=== PATIENT | female | born 1935 | race Caucasian/White ===

== ENCOUNTER 2020-04-11 10:59 | Emergency (ER) | payer MEDICARE, SELFPAY ==
--- NOTE | ~2020-04-11 | XR_ITS ---
EXAMINATION: XR abdomen/kub 1V DATE: 04/11/2020 11:29 INDICATION: Right abdominal pain. Constipation. TECHNIQUE: A supine view of the abdomen on 3 radiographs was obtained. COMPARISON: None. FINDINGS: There are no dilated loops of bowel. There is a small volume of stool in the colon. Calcifi cations in left pelvis are likely phleboliths. Median sternotomy wires are noted. IMPRESSION: 1. Normal bowel gas pattern. Reviewed, dictated and finalized at location A. EN PRESS OPERATOR
--- NOTE | 2020-04-11 11:02 | ED.GENADULT ---
HPI - General Adult General Chief complaint: Abdominal Pain Stated complaint: SOB/abdominal pain Time Seen by Provider: 04/11/20 11:09 History of Present Illness HPI narrative: 84-year-old female presents with complaints of shortness of breath with activity and intermittent abdomen pain for months. Jacquelyn reports that she has not had a good stool in weeks and has been passing small amounts of stool for the past 2 days, last prior to arrival with a lot of pushing. No treatment. History of diverticulitis, dyspnea on exertion asthma, and cardiac surgeries (appointments with cardiac MD on 04/12/20 in which she canceled today). No significant pelvic pain. No vaginal discharge. No concerns for STDs. No fever. No nausea, vomiting, or diarrhea. No flank pain. No exacerbating factors. Denies dysuria, hematuria, and vaginal bleeding. No blood in stool. Last BM today, small amount. No new dyspnea. Has been sitting around home mostly in night gown since July, with limited activity (several car rides). Denies chest pain, back pain, headache, and dizziness. Urine output within normal limits. Tolerating po intake well, limited water intake. The patient reports she have not been diagnosed with COVID-19. The patient reports she is not waiting for the results of a COVID-19 lab test. The patient reports she do not have chills, weakness, or fatigue. The patient reports she do not have a new or worsening cough or shortness of breath. The patient reports she do not have any rhinorrhea, congestion, sore throat, or loss of taste. Denies recent traveling. Denies concerns for COVID-19 or exposures been home with limited outdoor exposure except for essential household needs and return home. At this time, patient is not suspected of having COVID-19. Some parts of this dictation were generated by voice recognition software and may contain typographical and/or grammatical inaccuracies. Related Data Home Medications Medication Instructions Recorded Confirmed aspirin 81 mg tablet,delayed 81 mg PO DAILY 06/01/19 04/11/20 release loratadine 10 mg tablet 10 mg PO DAILY 06/01/19 04/11/20 [id number] acid 0.4 1 tablet PO DAILY 06/01/19 04/11/20 mg-lycopene 300 mcg-lutein 250 mcg tablet nitroglycerin 0.4 mg sublingual 0.4 mg SUBLINGUAL Q5M PRN 06/01/19 04/11/20 tablet albuterol sulfate 90 mcg/actuation 1 puff INHALATION Q4H PRN 06/23/19 04/11/20 aerosol inhaler fluocinolone 1 dose TOPICAL DAILY 04/11/20 04/11/20 Allergies Allergy/AdvReac Type Severity Reaction Status Date / Time erythromycin base Allergy Unknown Abdominal Verified 04/11/20 11:17 pain promethazine Allergy Unknown Hallucinati Verified 04/11/20 11:26 ng epinephrine AdvReac Unknown Palpitation Verified 04/11/20 11:17 s iodine AdvReac Unknown Flushing Verified 04/11/20 11:26 Review of Systems Review of Systems: Narrative: CONSTITUTIONAL: Denies fever, chills, sweats. EYES: Denies visual changes, redness, discharge. ENT: Denies rhinorrhea, congestion, sore throat, otalgia. CARDIOVASCULAR: Denies chest pain, palpitations, edema, new irregular heart beat. RESPIRATORY: Denies new dyspnea, cough. Denies wheezing. GASTROINTESTINAL: Complains of abdominal pain, constipation. Denies vomiting, diarrhea, nausea, and decrease appetite. GENITOURINARY: Denies dysuria, hematuria, abnormal discharge. SKIN: Denies rash or itching. MUSCULOSKELETAL: Denies acute back pain, joint pain, or myalgia. NEUROLOGIC: Denies numbness or focal weakness. PSYCHIATRIC: Denies anxiety or depression. All systems reviewed & are unremarkable except as noted in HPI and below. [facility] Past Medical History Medical History (Updated 04/13/20 @ 10:20 by EMMIE Rahman) Allergy to environmental factors Anxiety Asthma Chronic low back pain without sciatica Coronary artery disease Diastolic dysfunction Dyslipidemia, goal LDL below 100 Essential (primary) hypertension
[2020-04-11 11:04] VITALS: BP 128/88; PULSE 114; RESP 16; TEMP 36.6; O2SAT 98
--- NOTE | 2020-04-11 11:39 | ECG_ITS ---
Measurements Intervals [place] Rate: 90 P: [place]: 0 QRS: -40 QRSD: 167 T: -2 QT: 419 QTc: 515 Interpretive Statements ATRIAL FIBRILLATION LEFT AXIS DEVIATION RIGHT BUNDLE BRANCH BLOCK ABNORMAL ECG Electronically Signed On 04-11-2020 14:51:27 FOREIGN STUDENT ADVISER TEACHER by Rajinder Dutton D.O.
== END 2020-04-11 12:39 | disposition home or self-care (01) ==
PROVIDERS: Emergency Provider Nurse Practitioner Family; PCP Family Medicine
DX: R10.9 Unspecified abdominal pain (principal); R06.00 Dyspnea, unspecified; I48.91 Unspecified atrial fibrillation; I45.10 Unspecified right bundle-branch block; Z87.891 Personal history of nicotine dependence; Z95.2 Presence of prosthetic heart valve; Z95.5 Presence of coronary angioplasty implant and graft; I25.10 Atherosclerotic heart disease of native coronary artery without angina pectoris; F41.9 Anxiety disorder, unspecified; M19.90 Unspecified osteoarthritis, unspecified site; Z79.82 Long term (current) use of aspirin
CPT/HCPCS: 74018; 93005; 99213; G0463

== ENCOUNTER 2020-04-28 13:57 | Observation (INO) | payer MEDICARE, SELFPAY ==
[2020-04-28] VITALS (14 sets, daily range): BP systolic 101–148; BP diastolic 56–95; PULSE 76–107; RESP 16–23; TEMP 36.1–36.6; O2SAT 97–100; BMI 34.6
--- NOTE | ~2020-04-28 | XR_ITS ---
EXAMINATION: XR chest 2V DATE: 04/28/2020 14:36 INDICATION: Generalized chest pain. Shortness of breath. TECHNIQUE: Frontal and lateral views of the chest were obtained. COMPARISON: Chest 2 views 10/22/2014 FINDINGS: There is no pneumonia, pleural effusion, or pneumothorax. Cardiomegaly is noted. There are changes of heart valve replacement. There is a chronic sclerotic lesion in proximal right humerus, li marii an enchondroma or osteonecrosis. IMPRESSION: 1. Cardiomegaly. Reviewed, dictated and finalized at location A. LSTERER INSIDE IMPRESSION: 1. Cardiomegaly.
--- NOTE | 2020-04-28 14:04 | ECG_ITS ---
Measurements Intervals [place] Rate: 86 P: [place]: 0 QRS: -53 QRSD: 163 T: 1 QT: 422 QTc: 506 Interpretive Statements ATRIAL FIBRILLATION RIGHT BUNDLE BRANCH BLOCK LEFT ANTERIOR FASCICULAR BLOCK ABNORMAL ECG Electronically Signed On 04-28-2020 14:11:26 SERVER SYSTEMS ADMINISTRATOR by Rajinder Dutton D.O.
[2020-04-28] MEDS: ASPIRIN 81 MG CHEWABLE TABLET 324 MG PO (14:21)
[2020-04-28 14:34] LABS: Basophils Absolute Auto 0.1 K/mm3 (0.0-0.1); Basophils Percent Auto 1.7 % (0.2-1.2); Eosinophils Absolute Auto 0.1 K/mm3 (0-0.3); Eosinophils Percent Auto 1.4 % (0-4.4); Hematocrit 34.5 % (37.0-47.0); Immature Granulocyte Absolute 0.02 K/mm3 (0.00-0.031); Immature Granulocyte Percent A 0.3 % (0-0.5); Lymphocytes Absolute Auto 1.03 K/mm3 (0.9-3.2); Lymphocytes Percent Auto 14.9 % (18.3-44.2); Mean Corpuscular HGB Conc 31.9 g/dl (32-36); Mean Corpuscular Hemoglobin 29.6 pg (26-34); Monocytes Absolute Auto 0.9 K/mm3 (0.1-0.6); Monocytes Percent Auto 13.6 % (2.6-8.5); Neutrophils Absolute Auto 4.7 K/mm3 (1.3-6.7); Neutrophils Percent Auto 68.1 % (45.5-73.1); Platelet Count Result 350 k/mm3 (150-375); Red Blood Count 3.71 M/mm3 (4.2-5.4); Red Cell Distribution Width 14.9 % (11.5-14.5); White Blood Count 6.9 K/mm3 (4.5-10.0)
[2020-04-28 14:47] LABS: INR 1.3; Prothrombin Time 16.7 Seconds (11.1-14.7)
[2020-04-28 14:48] LABS: Partial Thromboplastin Time 33.7 SECONDS (22.3-36.8)
[2020-04-28 14:53] LABS: Anion Gap 11 mmol/L (8-16); Blood Urea Nitrogen 11 mg/dL (7-17); Calcium 9.4 mg/dL (8.4-10.2); Carbon Dioxide 26 mmol/L (22-30); Chloride 99 mmol/L (98-107); Estimated CRCL calculation 47 ml/min; Estimated Glomerular Filt Rate > 60; Glucose 135 mg/dL (65-105); Potassium 3.9 mmol/L (3.4-5.0); Sodium 136 mmol/L (137-145)
[2020-04-28 15:05] LABS: Troponin I < 0.012 ng/mL (0.000-0.034)
--- NOTE | 2020-04-28 15:28 | ED.CHESTPAIN ---
HPI - Chest Pain General Chief Complaint: Chest Pain Stated Complaint: cp/diff breathing Time Seen by Provider: 04/28/20 14:02 History of Present Illness HPI narrative: Patient is an 84-year-old female who presents ER with chest pain. Ongoing for the last 3 weeks. Is increasing in frequency and duration. Notices it usually in the morning when she wakes up. Will be pressure across her chest already up into her neck, bilateral shoulders, and her back. She also feels this when she exerts herself to walk towards furniture or move it. Patient was recently diagnosed with atrial fibrillation and told to start on Xarelto. She reports she did not start the medication. She reports also that the pain will wake her up from sleep. She reports having similar symptoms years ago prior to having an NV. Patient has no relief with Tums/eating/drinking. Related Data Home Medications Medication Instructions Recorded Confirmed aspirin 81 mg tablet,delayed 81 mg PO DAILY 06/01/19 04/11/20 release loratadine 10 mg tablet 10 mg PO DAILY 06/01/19 04/11/20 [id number]-[id number] acid 0.4 1 tablet PO DAILY 06/01/19 04/11/20 mg-lycopene 300 mcg-lutein 250 mcg tablet nitroglycerin 0.4 mg sublingual 0.4 mg SUBLINGUAL Q5M PRN 06/01/19 04/11/20 tablet albuterol sulfate 90 mcg/actuation 1 puff INHALATION Q4H PRN 06/23/19 04/11/20 aerosol inhaler fluocinolone 1 dose TOPICAL DAILY 04/11/20 04/11/20 Allergies Allergy/AdvReac Type Severity Reaction Status Date / Time erythromycin base Allergy Unknown Abdominal Verified 04/28/20 13:15 pain promethazine Allergy Unknown Hallucinati Verified 04/28/20 13:15 ng epinephrine AdvReac Unknown Palpitation Verified 04/28/20 13:15 s iodine AdvReac Unknown Flushing Verified 04/28/20 13:15 Review of Systems Review of Systems: All systems reviewed & are unremarkable except as noted in HPI and below Constitutional: Constitutional: Denies chills, Denies fever(s) and Denies weakness ENT: Denies nasal congestion and Denies sore throat Cardiovascular: Cardiovascular: Reports chest pain, Denies rapid heart rate and Reports radiating jaw, neck or arm pain Respiratory: Respiratory: Denies cough, Reports dyspnea and Denies wheezing Gastrointestinal: Gastrointestinal: Denies abdominal pain, Denies diarrhea, Denies nausea and Denies vomiting PMF Past Medical History Medical History (Updated 04/28/20 @ 16:00 by Chi Izaguirre MD) Allergy to environmental factors Anxiety Asthma Chronic low back pain without sciatica Coronary artery disease Diastolic dysfunction Dyslipidemia, goal LDL below 100 Essential (primary) hypertension Hiatal hernia History of diverticulitis History of vertigo Mild persistent asthma without complication Moderate to severe pulmonary hypertension Osteoarthritis Rosacea Surgical History Surgical History (Updated 04/28/20 @ 13:19 by Kell Vera) S/P AVR (aortic valve replacement) (Unknown) S/P coronary artery stent placement (~2003) Family History Family History Mother Patient's mother is , Onset Age: 82 Family history of lung cancer Father Family history of cardiovascular disease, Onset Age: 67 Grandparent Asthma Social History Social History Smoking status: Former smoker Tobacco type: cigarettes Second hand tobacco smoke exposure: No Smoking end date: 05/27/80 Alcohol intake: current Drinks per week: 14 Substance use: never Substance use type: does not use Additional living arrangements comments: But daughter lives in the upstairs apartment. Gender identity (if verbalized by the patient): Female Spiritual care concerns: Yes Agree to blood products: Yes Exam Narrative: Exam Narrative: GENERAL: Well-appearing, well-nourished, and in no acute distress. HEAD: Normocephalic, atraumatic. CHES
[2020-04-28] MEDS: ENOXAPARIN 100 MG/ML SYRINGE 87 MG SUB-Q (16:37)
[2020-04-28 17:40] LABS: Troponin I < 0.012 ng/mL (0.000-0.034)
--- NOTE | 2020-04-28 18:02 | PC.NURSE ---
This patient, Jacquelyn Palacios, was admitted to IMU Room 203-01. Patient/family oriented to hospital policies and general routines including ID bracelet, bed and alarms, visiting hours, pain management, procedures, bathroom and other care routines, personal items, smoking policy, room service/diet, and visiting hours. Information on how to activate the Rapid Response Team has been discussed. Patient/Family are encouraged to report perceived risks to care and to ask questions if they do not understand what they are told or what they should do.
[2020-04-28 20:11] LABS: Troponin I < 0.012 ng/mL (0.000-0.034)
--- NOTE | 2020-04-28 21:04 | PM.IMHP ---
H&P: HPI History of Present Illness Date/Time: 04/28/20 21:04 Chief complaint: chest pain, unstable angina, afib Narrative: This is a pleasant 84 year old obese prediabetic female with known CAD+ s/p NV s/p #1 stent, s/p aortic valve replacement w/ bovine valve, paroxysmal atrial fibrillation, and COPD who presented to the hospital from her PCPs office secondary to ongoing intermittent chest discomfort that has been ongoing for the past few months and seemed to worsen today. She describes her discomfort as exertional in nature and lasting less than 2 minutes whenever she gets it. Her discomfort resolves with rest. This morning her chest discomfort seemed to start in her epigastric region after getting up and radiated up across her chest and towards her neck and down her arms. She was worried because her symptoms reminded her of when she had a previous heart attack. She is known to have a hiatal hernia and denies any previous EGD. She can't remember the last time she had a stress test. She denies any associated symptoms of fever, worsening cough or shortness of breath, palpitations, nausea, vomiting, dysuria, hematuria, diarrhea, black stools, LE pain or swelling. She was supposed to start Xarelto but hasn't done it yet. She previously smoked 2 ppd x 20 years and quit in her 40s. She was anticoagulated today with Lovenox. Cardiology was consulted by ER provider and we were asked to admit the patient so they can evaluate her in the morning. On my encounter with the patient tonight she is asymptomatic. Review of Systems Review of Systems: All systems reviewed & are unremarkable except as noted in HPI and below PMFSH Past Medical History Medical History Allergy to environmental factors Anxiety Asthma Chronic low back pain without sciatica Coronary artery disease Diastolic dysfunction Dyslipidemia, goal LDL below 100 Essential (primary) hypertension Hiatal hernia History of diverticulitis History of vertigo Mild persistent asthma without complication Moderate to severe pulmonary hypertension Osteoarthritis Rosacea Surgical History Surgical History S/P AVR (aortic valve replacement) (Unknown) S/P coronary artery stent placement (~2003) Family History Family History Mother Patient's mother is , Onset Age: 82 Family history of lung cancer Father Family history of cardiovascular disease, Onset Age: 67 Grandparent Asthma Social History Social History Smoking packs per day: 2 Smoking cigarettes per day: 40.0 Smoking status: Former smoker Tobacco type: cigarettes Second hand tobacco smoke exposure: No Smoking end date: 05/27/80 Alcohol intake: current Drinks per week: 7 Substance use: never Substance use type: does not use Additional living arrangements comments: But daughter lives in the upstairs apartment. Gender identity (if verbalized by the patient): Female Spiritual care concerns: No Agree to blood products: Yes Meds Home Medications and Allergies Home Medications Medication Instructions Recorded Confirmed Type aspirin 81 mg tablet,delayed 81 mg PO DAILY 06/01/19 04/28/20 History release loratadine 10 mg tablet 10 mg PO DAILY 06/01/19 04/28/20 History nitroglycerin 0.4 mg sublingual 0.4 mg SUBLINGUAL Q5M PRN 06/01/19 04/28/20 History tablet albuterol sulfate 90 mcg/actuation 1 puff INHALATION Q4H PRN 06/23/19 04/28/20 History aerosol inhaler fluticasone 100 mcg-salmeterol 50 1 puff INHALATION BID #180 each 06/23/19 04/28/20 Rx mcg/dose blistr powdr for inhalation fenofibrate nanocrystallized 145 145 mg PO DAILY #90 tablet 07/30/19 04/28/20 Rx mg tablet metoprolol succinate 50 mg 50 mg PO DAILY #90 tablet 02/16/20 12
[2020-04-28] MEDS: ATORVASTATIN 40 MG TABLET PO (22:08)
[2020-04-29] VITALS (11 sets, daily range): BP systolic 122–124; BP diastolic 68–88; PULSE 68–112; RESP 16–20; TEMP 36.1–37.1; O2SAT 97–99
--- NOTE | 2020-04-29 | ECHO_ITS ---
Patient Info Name: Jacquelyn Palacios Age: 84 years : 1935 Gender: Female Ht: 62 in Wt: 186 lbs BSA: 1.96 m2 HR: 82 bpm BP: 123 / 88 mmHg Heart Rhythm: Atrial Fibrillation Technical Quality: Good Exam Date: 04/29/2020 10:04 AM Exam Location: [facility] Pulmonary Patient Status: Inpatient Admit Date: 04/28/2020 Staff Ordering Physician: Alfred Madrid MD Order Clerk: Josué Chavez, VANESSA, RT Attending Provider: Cindy Colon MD Referring Physician: Julius THAPA; Exam Type: CA echo doppler color flow Study Info Indications Z95.2 - Presence of prosthetic heart valve Complete two-dimensional, color flow and Doppler transthoracic echocardiogram is performed. Strain analysis performed. Summary 1. Complete two-dimensional, color flow and Doppler transthoracic echocardiogram is performed. 2. Left ventricular chamber dimension is normal. 3. Left ventricular systolic function is hyperdynamic, estimated at >70%. 4. 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 5. The mitral valve annulus is severely calcified. 6. There is mild to moderate mitral valve regurgitation. 7. There is severe tricuspid valve regurgitation. Left Ventricle Left ventricular chamber dimension is normal. Left ventricular systolic function is hyperdynamic, estimated at >70%. The left ventricular diastolic function is indeterminate. Right Ventricle Right ventricular chamber dimension is normal. Left Atria Left atrial chamber dimension is severely enlarged. Right Atria Right atrial chamber dimension is severely enlarged. 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 There is trace regurgitation of the bioprosthetic aortic valve. Pulmonic Valve The pulmonic valve is not well visualized. Mitral Valve The mitral valve has thickened leaflets. There is mild to moderate mitral valve regurgitation. The mitral valve annulus is severely calcified. Tricuspid Valve The tricuspid valve leaflets are normal. There is severe tricuspid valve regurgitation. Pericardium/Pleural The pericardium appears normal. Aorta The aortic root size at the sinus of Valsalva is normal. Left Ventricular Outflow Tract Name Value Normal LVOT 2D LVOT Diameter 1.9 cm LVOT Doppler LVOT Peak Gradient 5 mmHg LVOT Mean Gradient 2 mmHg LVOT VTI 19 cm LVOT VTI/AV VTI Ratio 0.3 LVOT Stroke Volume 57 ml LVOT CO 4.7 l/min LVOT CI 2.4 l/min/m2 Mitral Valve Name Value Normal MV Doppler
[2020-04-29 00:13] LABS: Alanine Aminotransferase 87 U/L (4-35); Alkaline Phosphatase 46 U/L (38-126); Aspartate Amino Transferase 107 U/L (14-36); Lipase 229 U/L (23-300)
[2020-04-29 00:24] LABS: Troponin I 0.014 ng/mL (0.000-0.034)
[2020-04-29 04:56] LABS: Basophils Absolute Auto 0.1 K/mm3 (0.0-0.1); Basophils Percent Auto 1.7 % (0.2-1.2); Eosinophils Absolute Auto 0.2 K/mm3 (0-0.3); Eosinophils Percent Auto 2.9 % (0-4.4); Hematocrit 32.6 % (37.0-47.0); Hemoglobin 10.3 g/dL (12.0-15.0); Immature Granulocyte Absolute 0.02 K/mm3 (0.00-0.031); Immature Granulocyte Percent A 0.3 % (0-0.5); Lymphocytes Absolute Auto 1.24 K/mm3 (0.9-3.2); Lymphocytes Percent Auto 21.4 % (18.3-44.2); Mean Corpuscular HGB Conc 31.6 g/dl (32-36); Mean Corpuscular Hemoglobin 29.2 pg (26-34); Mean Corpuscular Volume 92.4 fl (80-100); Mean Platelet Volume 11.2 fl (7.4-10.4); Monocytes Absolute Auto 0.8 K/mm3 (0.1-0.6); Monocytes Percent Auto 14.3 % (2.6-8.5); Neutrophils Absolute Auto 3.4 K/mm3 (1.3-6.7); Neutrophils Percent Auto 59.4 % (45.5-73.1); Platelet Count Result 320 k/mm3 (150-375); Red Blood Count 3.53 M/mm3 (4.2-5.4); Red Cell Distribution Width 14.6 % (11.5-14.5); White Blood Count 5.8 K/mm3 (4.5-10.0)
[2020-04-29 05:09] LABS: Anion Gap 8 mmol/L (8-16); Blood Urea Nitrogen 10 mg/dL (7-17); Calcium 8.7 mg/dL (8.4-10.2); Carbon Dioxide 28 mmol/L (22-30); Chloride 100 mmol/L (98-107); Cholesterol 82 mg/dL (0-200); Estimated CRCL calculation 53 ml/min; Estimated Glomerular Filt Rate > 60; Glucose 109 mg/dL (65-105); HDL Direct 13 mg/dL; Potassium 3.7 mmol/L (3.4-5.0); Sodium 136 mmol/L (137-145); Triglycerides 119 mg/dL (<150)
[2020-04-29 05:20] LABS: LDL Cholesterol Direct 55 mg/dL
[2020-04-29] MEDS: METOPROLOL SUCCINATE EXT REL 50 MG TABCR PO (08:35)
[2020-04-29] MEDS: MULTIVITAMINS /C LUTEIN (CENTRUM SILVER) TABLET *BKC 1 TAB PO (08:35)
[2020-04-29] MEDS: FENOFIBRATE NANOCRYSTALLIZED 145 MG TABLET PO (08:36)
[2020-04-29] MEDS: LORATADINE 10 MG TABLET PO (08:36)
[2020-04-29] MEDS: MONTELUKAST SODIUM 10 MG TABLET PO (08:36)
[2020-04-29] MEDS: ASPIRIN 81 MG ENTERIC TABLET PO (08:36)
--- NOTE | 2020-04-29 09:12 | PM.CNCAR ---
Assessment and Plan Additional Plan 84-year-old female with: Coronary and valvular heart disease. The patient is having more symptoms of dyspnea probably as I stated in the office due to the fact that she is now in atrial fibrillation and I suspect has significant mitral valve regurgitation. She does have intermittent episodes of chest pain. This of course raises concern regarding her coronary artery disease but she does have a series of negative troponins at least 4 5 samples. I do not see any clinical or electrocardiographic evidence of acute coronary syndrome. I would like to order the echocardiogram that I was going to have done in the office to be done this morning. I will review those results and come back and see the patient for further discussion. Alfred Madrid MD [facility] History of Present Illness History of Present Illness Consult date/time: 04/29/20 09:12 Consult reason: chest pain and shortness of breath Reason For Visit: chest pain, unstable angina, afib Narrative: This is a pleasant 84-year-old lady who I see in the office with a history of coronary disease, valvular heart disease and atrial fibrillation. She was hospitalized yesterday after being seen in the emergency room and she was sent there from her PCP office earlier in the day. The patient was reporting intermittent episodes of chest discomfort of recent onset and was seen in the emergency room after she was seen by her PCP. She was then admitted for further evaluation and management. Mrs. Palacios is a patient who initially presented with symptoms of myocardial ischemia while she was out of town in [place] and underwent urgent right coronary artery stenting I believe back in 2003. She presented to me initially in 2012 with symptoms of shortness of breath and was found to have significant aortic valve stenosis. Her right coronary artery also at that time I believe was stenotic again and she was referred for surgery she received a bioprosthetic aortic valve and I believe a single-vessel bypass to the RCA. She had done very well since then and has been seen in my office regularly. As it happens she went to a urgent care facility for some abdominal pain and at that time was found to be in atrial fib by physical exam and ECG. She was then asked to see me in referral which I saw 2 weeks ago. I told the patient and her family that I was suspicious that her mitral valve regurgitation had triggered the onset of her atrial fibrillation and for that reason she was more symptomatic with dyspnea. Anticoagulation with Xarelto was ordered and recommended an echocardiogram. She was fearful of the anticoagulant and never did get the prescription filled. She also was fearful of coming into the office during the pandemic and did not get the echocardiogram performed. Review of Systems Constitutional: Constitutional: Reports no additional constitutional complaints Eyes: Eyes: Reports no additional eye complaints ENT: Reports system reviewed and no additional complaints, except as documented Cardiovascular: Cardiovascular: Reports as per HPI Respiratory: Respiratory: Reports as per HPI Gastrointestinal: Gastrointestinal: Reports no additional gastrointestinal complaints Musculoskeletal: Musculoskeletal: Reports no additional musculoskeletal complaints Integumentary/Breasts: Skin/Breast: Reports system reviewed and no additional complaints, except as docu Neurologic: Reports system reviewed and no additional complaints, except as documented Endocrine: Endocrine: Reports no additional endocrine complaints Hematologic/Lymphatic: Hematologic/Lymphatic: Reports no additional hematologic/lymphatic complaints Allergic/Immunologic: Allergic/Immunologic: Reports no additional allergic/immunologic complaints [facility] Past Medical History Medical History Allergy to environmental factors Anxiety Asthma Chronic low back pain without
--- NOTE | 2020-04-29 13:04 | PM.PNCARD ---
Progress Note: A&P Additional Plan 84-year-old lady with coronary heart disease, valvular heart disease and recent development of atrial fibrillation. My current recommendations are to systemically anticoagulate her with Xarelto which was recommended 2 weeks ago in the office. She now is agreeable to take the medication. I would like to start her on a modest dose of furosemide such as 20 mg per day and arrange to see her in the office in about 4 weeks after discharge to discuss and schedule attempt at restoring sinus rhythm electrically. That gives the patient some time to consider her opinion about redo valve heart surgery. In my opinion she can be discharged to home this afternoon Alfred Madrid MD [facility] Subjective Date/time seen: Date of service: 04/29/20 13:04 Interval history: Follow-up visit in this 84-year-old female with: Shortness of breath, valvular heart disease coronary heart disease and atrial fibrillation. Echocardiogram done this morning demonstrates very good left ventricular systolic function. I am concerned that her bioprosthetic aortic valve appears to be significantly stenotic with a calculated valve area of approximately 0.8 cm2. The mitral valve regurgitation on echo looks mild. She does have severe tricuspid valve regurgitation. Had a long discussion with the patient about these findings and about considering redo valve surgery and/or coronary read revascularization. The patient is not sure at her advanced age that she wishes to undergo any further cardiac surgical procedures. Certainly it is still my impression that she is recently mowed more short of breath because she has developed atrial fibrillation. It is possible we would be able to restore sinus rhythm and help her feel symptomatically improved after a suitable period of anticoagulation. Exam Const: General: comfortable and no acute distress HENMT: Mouth: Yes moist mucous membranes Eyes: Sclera: sclerae normal Pupils: Equal, round and reactive pupils present Neck: Neck: supple Thyroid: thyroid normal Resp: Effort & Inspection: normal respiratory effort Auscultation: clear to auscultation bilaterally Cardio: Rhythm: abnormal rhythm irregularly irregular Other: Grade 2/6 crescendo decrescendo murmur at the base and a grade 3/6 holosystolic apical murmur are audible. GI: GI Palp: Yes Soft to palpation Auscultation: normal bowel sounds Neuro: Cognition (Neuro): normal cognition Extrem: General: normal to inspection Objective Data Vital Signs Vital Signs: Vital Signs - 24 hr 04/28/20 14:09 04/28/20 14:10 04/28/20 14:15 Temperature 36.6 C Pulse Rate 87 88 85 Respiratory Rate 22 H 19 19 Blood Pressure 139/90 Pulse Oximetry 100 99 98 04/28/20 14:17 04/28/20 14:51 04/28/20 15:00 Temperature Pulse Rate 79 77 76 Respiratory Rate 20 23 H 20 Blood Pressure 101/56 L Pulse Oximetry 98 97 99 04/28/20 15:15 04/28/20 16:38 04/28/20 17:51 Temperature Pulse Rate 83 85 Respiratory Rate 23 H 20 22 H Blood Pressure 137/95 H Pulse Oximetry 98 100 100 04/28/20 18:14 04/28/20 18:59 04/28/20 20:00 Temperature 36.6 C 36.1 C L Pulse Rate 76 88 82 Respiratory Rate 16 18 Blood Pressure 148/84 H 106/75 Pulse Oximetry 100 99 04/28/20 22:00 04/28/20 23:52 04/29/20 00:00 Temperature 36.1 C L Pulse Rate 95 107 H 96 Respiratory Rate 18 18 Blood Pressure 123/67 Pulse Oximetry 98 98 04/29/20 02:00 04/29/20 03:58 04/29/20 04:00 Temperature 36.3 C L Pulse Rate 98 95 95 Respiratory Rate 16 18 Blood Pressure 122/69 Pulse Oximetry 99 97 04/29/20 06:00 04/29/20 08:00 04/29/20 08:35 Temperature 36.1 C L Pulse Rate 96 112 H 98 Respiratory Rate 18 Blood Pressure 123/88 Pulse Oximetry 98 04/29/20 11:53 Temperature 37.1 C Pulse Rate 68 Respiratory Rate 20 Blood Pressure 124/68 Pulse Oximetry 97 Intake/Output Intake/Output: Intake & Output 04/26/20 04/27/20 04/28/20
[2020-04-29] MEDS: BENZONATATE 100 MG CAPSULE 200 MG PO (13:53)
[2020-04-29] MEDS: RIVAROXABAN 20 MG TABLET PO (14:43)
--- NOTE | 2020-04-29 18:01 | PM.DS ---
DS: Admitting Diagnosis Admitting Diagnosis Admitting Diagnosis: chest pain, unstable angina, afib DS: Discharge Diagnosis Discharge Diagnosis (1) Chest pain: Qualifiers: Chest pain type: unspecified Qualified Code(s): R07.9 - Chest pain, unspecified Code(s): R07.9 - Chest pain, unspecified Status: Acute Assessment and Plan: Patient had no further chest pain and troponins serially were negative. She has been anticoagulated by ER provider. Continue ASA therapy. Cardiology Cardiology so and repeat echo revealed area of prosthetic aortic valve a 1 cm with 25 mm gradient. This could have been causing the chest discomfort sensor is no significant coronary disease when she had original valve repaired in the past that catheterization.. Cardiology felt atrial fibrillation was precipitating the shortness of breath with exertion. She is encouraged to take her Xarelto and follow-up with cardiology in 4 weeks at which point possible cardioversion (2) Atrial fibrillation: Qualifiers: Atrial fibrillation type: paroxysmal Qualified Code(s): I48.0 - Paroxysmal atrial fibrillation Code(s): I48.91 - Unspecified atrial fibrillation Status: Chronic Assessment and Plan: Currently rate controlled. Continue beta tay and Resume Xarelto at discharge. As above cardiology felt this was contributing to her shortness of breath with exertion and plan for possible cardioversion in 4 weeks (3) Normocytic anemia: Code(s): D64.9 - Anemia, unspecified Status: Acute Assessment and Plan: Acute vs. Chronic. No signs of acute blood loss. Will need to follow-up with primary care (4) COPD (chronic obstructive pulmonary disease): Qualifiers: COPD type: unspecified COPD Qualified Code(s): J44.9 - Chronic obstructive pulmonary disease, unspecified Code(s): J44.9 - Chronic obstructive pulmonary disease, unspecified Status: Acute Assessment and Plan: Continue bronchodilators, and montelukast. (5) Essential (primary) hypertension: Code(s): I10 - Essential (primary) hypertension Status: Chronic Assessment and Plan: stable. Monitor blood pressure. Continue metoprolol. (6) Dyslipidemia, goal LDL below 100: Code(s): E78.5 - Hyperlipidemia, unspecified Status: Chronic Assessment and Plan: . Continue atorvastatin. Slide LFT elevation could be from statin will continue to follow with primary care (7) Coronary artery disease: Qualifiers: Coronary Disease-Associated Artery/Lesion type: [place] artery [place] vs. transplanted heart: [place] heart Associated angina: without angina Qualified Code(s): I25.10 - Atherosclerotic heart disease of [place] coronary artery without angina pectoris Code(s): I25.10 - Atherosclerotic heart disease of [place] coronary artery without angina pectoris Status: Chronic Assessment and Plan: As above troponins were negative and Cardiology felt could be related to the restenotic aortic valve. Patient will follow-up in 4 weeks DS: Summary Hospital Course Hospital Course: 84-year-old hypertensive female with recent onset atrial fibrillation with controlled ventricular response presented to the emergency room with increasing shortness of breath and chest discomfort on exertion. EKG unchanged with AFib controlled ventricular response and right bundle branch block. Troponins were negative. Echocardiogram showed giio-pm-dszonsky mitral insufficiency with normal ejection fraction and stenosis of the prosthetic aortic valve with an area of 1 cm2 and 25 mm gradient. Cardiology felt AFib was cause no shortness of breath than the restenotic valve could be causing the shortness of breath and chest discomfort. Patient will follow-up in 4 weeks after full anticoagulation and make decision about cardioversion at that time. Will need follow-up on a electrolytes, CBC, and LFTs. Dis
== END 2020-04-29 15:20 | disposition home or self-care (01) ==
LOC: ANHED 16:56 → ANHIMU 04-29 13:30
PROVIDERS: Family Medicine; Admitting Provider Family Medicine; Emergency Provider Emergency Medicine; PCP Family Medicine; Visit Provider Internal Medicine
DX: R07.9 Chest pain, unspecified (principal); I48.0 Paroxysmal atrial fibrillation; D64.9 Anemia, unspecified; J44.9 Chronic obstructive pulmonary disease, unspecified; I10 Essential (primary) hypertension; E78.5 Hyperlipidemia, unspecified; I25.10 Atherosclerotic heart disease of native coronary artery without angina pectoris; I25.2 Old myocardial infarction; F41.9 Anxiety disorder, unspecified; R73.03 Prediabetes; I08.3 Combined rheumatic disorders of mitral, aortic and tricuspid valves; M54.5 Low back pain; K44.9 Diaphragmatic hernia without obstruction or gangrene; I27.20 Pulmonary hypertension, unspecified; R94.31 Abnormal electrocardiogram [ECG] [EKG]; E66.9 Obesity, unspecified; Z68.34 Body mass index [BMI] 34.0-34.9, adult; Z87.891 Personal history of nicotine dependence; Z95.5 Presence of coronary angioplasty implant and graft; Z79.82 Long term (current) use of aspirin; Z79.899 Other long term (current) drug therapy; Z95.4 Presence of other heart-valve replacement
CPT/HCPCS: 36415; 71046; 80048; 80061; 83690; 84075; 84450; 84460; 84484; 85025; 85610; 85730; 93005; 93306; 96372; 99285; A9270; G0378; J1650

== ENCOUNTER 2020-05-09 15:02 | Outpatient (CLI) | payer MEDICARE, SELFPAY ==
[2020-05-09 15:52] LABS: Anion Gap 6 mmol/L (8-16); Blood Urea Nitrogen 9 mg/dL (7-17); Carbon Dioxide 30 mmol/L (22-30); Chloride 100 mmol/L (98-107); Estimated Glomerular Filt Rate > 60; Glucose 124 mg/dL (65-105); Potassium 3.6 mmol/L (3.4-5.0); Sodium 136 mmol/L (137-145)
== END 2020-05-09 15:03 | disposition home or self-care (01) ==
PROVIDERS: PCP Family Medicine; Visit Provider Internal Medicine
DX: I10 Essential (primary) hypertension (principal); I51.89 Other ill-defined heart diseases
CPT/HCPCS: 36415; 80048

== ENCOUNTER 2020-05-21 01:10 | Outpatient (CLI) | payer MEDICARE, SELFPAY ==
[2020-05-21 19:31] LABS: SARS-CoV-2 RNA PCR Negative
== END 2020-05-21 01:11 | disposition home or self-care (01) ==
LOC: ANHCOVIDDT 01:10
PROVIDERS: PCP Family Medicine; Visit Provider Specialist
DX: Z01.818 Encounter for other preprocedural examination (principal); Z20.828 Contact with and (suspected) exposure to other viral communicable diseases
CPT/HCPCS: 87635; C9803; U0003

== ENCOUNTER 2020-05-25 00:45 | Day surgery (SDC) | payer MEDICARE, SELFPAY ==
[2020-05-24 14:24] VITALS: BMI 34.7
[2020-05-25] VITALS (35 sets, daily range): BP systolic 93–152; BP diastolic 58–98; PULSE 74–101; RESP 13–22; TEMP 36.6–36.9; O2SAT 93–100; BMI 35.5
[2020-05-25 08:43] LABS: Basophils Percent Auto 0.2 % (0.2-1.2); Hematocrit 31.7 % (37.0-47.0); Hemoglobin 10.2 g/dL (12.0-15.0); Immature Granulocyte Absolute 0.01 K/mm3 (0.00-0.031); Immature Granulocyte Percent A 0.2 % (0-0.5); Lymphocytes Absolute Auto 0.44 K/mm3 (0.9-3.2); Lymphocytes Percent Auto 9.2 % (18.3-44.2); Mean Corpuscular HGB Conc 32.2 g/dl (32-36); Mean Corpuscular Hemoglobin 27.3 pg (26-34); Mean Corpuscular Volume 84.8 fl (80-100); Mean Platelet Volume 10.6 fl (7.4-10.4); Monocytes Absolute Auto 0.1 K/mm3 (0.1-0.6); Neutrophils Absolute Auto 4.3 K/mm3 (1.3-6.7); Neutrophils Percent Auto 89.4 % (45.5-73.1); Platelet Count Result 368 k/mm3 (150-375); Red Blood Count 3.74 M/mm3 (4.2-5.4); Red Cell Distribution Width 16.9 % (11.5-14.5); White Blood Count 4.8 K/mm3 (4.5-10.0)
[2020-05-25 08:52] LABS: INR 1.2
[2020-05-25 08:56] LABS: Anion Gap 9 mmol/L (8-16); Blood Urea Nitrogen 11 mg/dL (7-17); Calcium 9.3 mg/dL (8.4-10.2); Carbon Dioxide 26 mmol/L (22-30); Chloride 101 mmol/L (98-107); Estimated CRCL calculation 53 ml/min; Estimated Glomerular Filt Rate > 60; Glucose 172 mg/dL (65-105); Potassium 3.9 mmol/L (3.4-5.0); Sodium 136 mmol/L (137-145)
--- NOTE | 2020-05-25 09:06 | SUR.PREOP ---
Patient arrives to [facility] 4 in wheelchair with staff assistance provided to get dressed into hospital gown and to ambulate to bed. PIV initiated and labs obtained. VSS. Patient denies pain upon arrival. Patient took 50 mg benadryl and 50 mg prednisone at 0855 to premedicate for iodine allergy. Patient updated on plan of care and verbalizes understanding. Will continue to closely monitor patient.
--- NOTE | 2020-05-25 09:31 | WPDMODSED ---
Moderate Sedation Note-Pt Data Patient Data Diagnosis: nitrate responsive chest pain coronary disease with previous RCA PCI status post bioprosthetic aortic valve replacement for aortic stenosis persistent atrial fibrillation Present Complaint: this is an 85-year-old woman who underwent bioprosthetic AVR to treat critical aortic stenosis. She did very well initially and now has had problems with nitrate responsive chest pain creating concern regarding her coronaries. She has in the remote past in 204 undergone stenting of the RCA. She also has a history of atrial fibrillation of relatively recent onset and unfortunately had significant hemorrhaging in response to systemic anticoagulation. For further evaluation of her chest pain coronary angiography is scheduled for today Procedure to be performed/Plan: coronary angiography possible PCI Allergies Allergy/AdvReac Type Severity Reaction Status Date / Time erythromycin base Allergy Unknown Abdominal Verified 05/24/20 14:30 pain promethazine Allergy Unknown Hallucinati Verified 05/24/20 14:30 ng epinephrine AdvReac Unknown Palpitation Verified 05/24/20 14:30 s iodine AdvReac Unknown Flushing Verified 05/24/20 14:30 Home Medications Medication Instructions Recorded Confirmed Type aspirin 81 mg tablet,delayed 81 mg PO DAILY 06/01/19 05/24/20 History release loratadine 10 mg tablet 10 mg PO DAILY 06/01/19 05/24/20 History nitroglycerin 0.4 mg sublingual 0.4 mg SUBLINGUAL Q5M PRN 06/01/19 05/24/20 History tablet albuterol sulfate 90 mcg/actuation 1 puff INHALATION Q4H PRN 06/23/19 05/24/20 History aerosol inhaler fenofibrate nanocrystallized 145 145 mg PO DAILY #90 tablet 07/30/19 05/24/20 Rx mg tablet metoprolol succinate 50 mg 50 mg PO DAILY #90 tablet 02/16/20 05/24/20 Rx tablet,extended release 24 hr lorazepam 0.5 mg tablet 0.5 mg PO BID PRN #60 tablet 04/08/20 05/24/20 Rx atorvastatin 40 mg PO DAILY 04/28/20 05/24/20 History montelukast 10 mg PO DAILY 04/28/20 05/24/20 History sttemcne-ndrhkjs-hkzu-lutein 1 tablet PO DAILY 04/28/20 05/24/20 History furosemide 20 mg PO DAILY #30 tablet 04/29/20 05/24/20 Rx codeine 10 mg-guaifenesin 100 mg/5 5 ml PO BID PRN #118 ml 05/09/20 05/24/20 Rx mL oral liquid Current Medications: Active Medications Sodium Chloride (Normal Saline Iv) 500 mls @ 100 mls/hr IV CONT .Q5H [facility] Sedation/Anesthesia: No previous sedation/anesthesia problems (including family history). [facility] Past Medical History Medical History Allergy to environmental factors Anxiety Asthma Chronic low back pain without sciatica Coronary artery disease Diastolic dysfunction Dyslipidemia, goal LDL below 100 Essential (primary) hypertension Hiatal hernia History of diverticulitis History of vertigo Mild persistent asthma without complication Moderate to severe pulmonary hypertension Osteoarthritis Rosacea Surgical History Surgical History S/P AVR (aortic valve replacement) (Unknown) S/P coronary artery stent placement (~2003) Family History Family History Mother Patient's mother is , Onset Age: 82 Family history of lung cancer Father Family history of cardiovascular disease, Onset Age: 67 Grandparent Asthma Social History Social History Smoking packs per day: 2 Smoking cigarettes per day: 40.0 Smoking status: Former smoker Tobacco type: cigarettes Second hand tobacco smoke exposure: No Smoking end date: 05/27/79 Alcohol intake: current Drinks per week: 7 Alcohol use details: 1 glass of wine per day Substance use: never Substance use type: does not use Living arrangements: with family Additional living arrangements comments: But daughter lives in the upst
--- NOTE | 2020-05-25 11:04 | ECG_ITS ---
Measurements Intervals [place] Rate: 79 P: [place]: 0 QRS: -59 QRSD: 161 T: -5 QT: 456 QTc: 525 Interpretive Statements ATRIAL FIBRILLATION RIGHT BUNDLE BRANCH BLOCK LEFT ANTERIOR FASCICULAR BLOCK ABNORMAL ECG Electronically Signed On 05-25-2020 14:26:17 HAND ASSEMBLER FOR [employer] by Rajinder Dutton D.O.
--- NOTE | 2020-05-25 11:11 | WPDCARDPROC ---
Cardiac Cath Procedure Note Date of procedure:: 05/25/20 Performing physician:: Alfred Madrid MD Indication:: nitrate responsive chest pain, history of previous RCA stenting previous aortic valve replacement persistent atrial fibrillation Brief clinical history:: this is an 85-year-old woman who has a history of stenting of her RCA in the remote past. About 6 years ago she underwent bioprosthetic aortic valve replacement for critical aortic stenosis. Recently the patient developed persistent atrial fibrillation and also nitrate responsive chest pain. Despite medical therapy she continues to have symptoms and in this setting a follow-up coronary angiogram has been recommended. Procedure Procedure performed:: Left and right coronary angiography PCI (RAE) to the right coronary artery Sedation/Medication given:: fentanyl 75 mg Versed 2 mg case start time 954 a.m. case end time 11:00 a.m. sedation provided by Marco Marinelli RN, trained observer Access site:: right femoral artery Estimated blood loss:: 20-30 cc Procedure note:: patient was brought to the cardiac catheterization lab in the postabsorptive state where the right femoral triangle was prepared in the usual fashion. Anesthesia was provided with 1% lidocaine infiltrated locally. Using the modified Seldinger technique a 5 [place] sheath was placed into the right femoral artery after this I injected the left coronary artery using a standard 5 [place] FL4 diagnostic catheter and the right coronary artery using a 5 [place] no torque catheter. The cine angiograms were then reviewed and PCI of the right coronary artery was recommended carried out as detailed below. Prior to PCI the 5 [place] sheath was changed out over a guidewire for a 6 [place]. The patient was then systemically anticoagulated with Angiomax bolus and infusion and received clopidogrel 600 mg p.o.. She also received 325 mg of aspirin. 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 Findings:: Hemodynamics: Central aortic pressure was 134/84. The left ventricle was not entered during this procedure left main coronary artery is relatively short but free of significant disease. The left anterior descending is a moderate caliber artery extending down to and around the apex. There is mild plaquing in the proximal LAD but no more than 30-40% stenosis seen in any projection circumflex is a medium caliber artery giving rise to the marginal branches the circumflex has mild luminal irregularities but no flow-limiting lesions. The right coronary artery is moderate caliber and dominant to the posterior circulation there is stent material visible in the midportion of the RCA. In the proximal area in the stented segment there is a high-grade stenosis of 95-99% which appears to be heavily calcified. In the distal aspect of the stent there was a more discrete 80-90% stenosis. Intervention: The right coronary artery was engaged using a 6 [place] WRP guiding catheter. A 0.014 BMW guidewire was advanced into the artery with some challenge across the calcified plaque down into the distal RCA and out into the RPL branch. Following this I pre-dilated the area using a 2.5 mm emerge PTCA balloon. advancing the balloon into the lesion was challenging but ultimately successful. Following this I advanced a 3.0 x 20 mm balloon for further predilatation. Following this the Orsiro drug-eluting stent was placed up to the region of the heavily calcified plaque but would not advance through that area into the midportion of the RCA which had to be treated. This stent was withdrawn and I placed a GuideLiner device in the artery up to the calcified plaque. With the GuideLiner in position the stent was able to be placed through the entire a
--- NOTE | 2020-05-25 11:37 | SUR.OPER ---
Patient arrives to [facility] post cardiac cath. Patient A & O x 4 and denies pain. 6 Fr sheath remains to R groin with angiomax infusion currently running. Palpable distal pulse present. VS as charted. Post intervention EKG obtained. Patient educated on remaining flat while sheath remains. Patient updated on plan of care and verbalizes understanding. Will continue to closely monitor patient.
[2020-05-25] MEDS: SODIUM CHLORIDE 0.9% IV 1,000 ML 125 ML IV CONT (14:30)
--- NOTE | 2020-05-25 17:36 | SUR.PHASEII ---
1730-pt into PCS charting
--- NOTE | 2020-05-25 17:55 | ADMGEN ---
This patient, Jacquelyn Palacios, was admitted to [facility]. Patient/family oriented to hospital policies and general routines including ID bracelet, bed and alarms, visiting hours, pain management, procedures, bathroom and other care routines, personal items, smoking policy, room service/diet, and visiting hours. Information on how to activate the Rapid Response Team has been discussed. Patient/Family are encouraged to report perceived risks to care and to ask questions if they do not understand what they are told or what they should do.
[2020-05-25] MEDS: FENOFIBRATE NANOCRYSTALLIZED 145 MG TABLET PO (18:49)
[2020-05-25] MEDS: METOPROLOL SUCCINATE EXT REL 50 MG TABCR PO (18:49)
[2020-05-26] VITALS: PULSE 82
[2020-05-26 02:00] VITALS: PULSE 68
[2020-05-26 03:55] VITALS: BP 106/69; PULSE 81; RESP 20; TEMP 36.2; O2SAT 98
[2020-05-26 04:00] VITALS: PULSE 82
[2020-05-26 06:00] VITALS: PULSE 70
[2020-05-26] MEDS: CLOPIDOGREL BISULFATE 75 MG TABLET PO (09:03)
--- NOTE | 2020-05-26 09:08 | PM.DS ---
DS: Admitting Diagnosis Admitting Diagnosis Admitting Diagnosis: Nitrate responsive chest pain. History of coronary disease DS: Discharge Diagnosis Discharge Diagnosis (1) Coronary artery disease: Qualifiers: Associated angina: without angina Coronary Disease-Associated Artery/Lesion type: [place] artery [place] vs. transplanted heart: [place] heart Qualified Code(s): I25.10 - Atherosclerotic heart disease of [place] coronary artery without angina pectoris Code(s): I25.10 - Atherosclerotic heart disease of [place] coronary artery without angina pectoris Status: Chronic Assessment and Plan: Nitrate responsive chest pain. History of previous RCA stenting. Cardiac catheterization 05/25/2020: Coronary artery disease with heavily calcified diffusely diseased midportion of the RCA which was stented 16 years ago and recent recurrence stenosis in the segment which was heavily calcified resulting in ischemic nitrate responsive chest pain. No significant left coronary lesion. She proceeded on to a technically challenging somewhat difficult intervention but ultimately successful after which a 3.0 x 35 mm 0rsiro drug-eluting stent was placed into the area of disease with favorable and a topical results. The calcified plaque in the proximal segment was not ideal in appearance been since more aggressive devices were not available in the research lab assistant the lesion could not be improved any further. DS: Summary Hospital Course Reason for hospitalization: Cardiac catheterization for nitrate responsive chest pain and previous stenting to RCA. Hospital Course: 85-year-old woman with a history of stenting of her RCA 16 years ago. She developed persistent atrial fibrillation as well as nitrate responsive chest pain. Despite medical therapy she continued to have symptoms and coronary angiogram was recommended. See above for results of cardiac catheterization and PCI. She was monitored overnight. She had no chest discomfort. She did have some discomfort from her hiatal hernia. She does have shortness of breath with exertional activities which is at her baseline. No lightheadedness or dizziness. Right groin site was without swelling or bleeding. Small amount of ecchymosis around the site. No femoral bruit. Distal pulses intact. She was discharged home in pain-free condition Status at Discharge Functional status at discharge: independent ambulation Overall status at discharge: patient is back to baseline Time Spent with Patient Time attestation: Total time spent providing and/or coordinating discharge services: 20 minutes in the room to do exam, discuss medications an activity limitations. 10 minutes to do discharge orders. 10 minutes to do discharge summary. Total time for discharge: 40 minutes. Time spent: Greater than 30 minutes Exam Const: General: comfortable and no acute distress HENMT: General nose exam: Normal nares present Mouth: Yes moist mucous membranes Eyes: General: appearance normal, both eyes and all related structures Neck: Neck: no JVD Resp: Auscultation: clear to auscultation bilaterally Cardio: Rate: regular rate Rhythm: abnormal rhythm irregularly irregular GI: GI Palp: Yes Soft to palpation Auscultation: normal bowel sounds Skin: General skin exam: normal color Neuro: General: patient oriented x3 and other (Forgetful) Extrem: General: no clubbing, cyanosis or edema Psych: Appearance: grossly normal Mental Status: mental status grossly normal Speech and movement: Normal speech and movement present Discharge Plan Discharge Patient Disposition: Home, Self-Care Discharge Instructions: ACTIVITY: No lifting, pushing or pulling more than 10 pounds for 1 week. No strenuous exercise or activity for 1 week. May start gentle walking program in 1 week.. May shower but no tub baths or swimming pool for 1 week. DO NOT STOP YOUR MEDICATIONS
== END 2020-05-26 11:18 | disposition home or self-care (01) ==
LOC: ANHCATHLAB 08:16 → ANHCPC 17:35
PROVIDERS: PCP Family Medicine; Visit Provider Specialist
PROC: 4A023N7 Measurement of Cardiac Sampling and Pressure, Left Heart, Percutaneous Approach (ICD-10-PCS; CPT 93452; principal; 2020-05-25 10:00)
DX: I48.19 Other persistent atrial fibrillation (principal); I25.10 Atherosclerotic heart disease of native coronary artery without angina pectoris; R07.9 Chest pain, unspecified; I45.10 Unspecified right bundle-branch block; Z95.4 Presence of other heart-valve replacement; Z95.5 Presence of coronary angioplasty implant and graft; I10 Essential (primary) hypertension; E78.5 Hyperlipidemia, unspecified; I27.20 Pulmonary hypertension, unspecified; J45.30 Mild persistent asthma, uncomplicated; F41.9 Anxiety disorder, unspecified; Z87.891 Personal history of nicotine dependence
CPT/HCPCS: 36415; 80048; 85025; 85610; 93005; 93458; A9270; C1725; C1769; C1874; C1887; C1894; C9600; C9803; J0461; J0583; J1644; J2250; J3010; J7030; J7040; U0003

== ENCOUNTER 2020-07-04 14:12 | Inpatient (IN) | payer MEDICARE, SELFPAY ==
[2020-07-04] VITALS (9 sets, daily range): BP systolic 92–105; BP diastolic 46–68; PULSE 69–103; RESP 18–20; TEMP 36.3–36.5; O2SAT 95–100; BMI 39.8
--- NOTE | ~2020-07-04 | XR_ITS ---
EXAMINATION: XR chest 1V portable DATE: 07/04/2020 14:42 INDICATION: Dyspnea. TECHNIQUE: A single frontal view of the chest was obtained. COMPARISON: Chest 2 views 04/28/2020 FINDINGS: There is no pneumonia, pleural effusion, or pneumothorax. Cardiomegaly is noted. There are changes of heart valve replacement. IMPRESSION: 1. Cardiomegaly. Reviewed, dictated and finalized at location A. [place] [employer] IMPRESSION: 1. Cardiomegaly.
--- NOTE | 2020-07-04 14:21 | ECG_ITS ---
Measurements Intervals [place] Rate: 97 P: [place]: 0 QRS: -60 QRSD: 169 T: 6 QT: 407 QTc: 517 Interpretive Statements ATRIAL FIBRILLATION RIGHT BUNDLE BRANCH BLOCK LEFT ANTERIOR FASCICULAR BLOCK ABNORMAL ECG Electronically Signed On 07-04-2020 14:26:25 LOGISTICAL ENGINEER by Rajinder Dutton D.O.
--- NOTE | 2020-07-04 14:22 | ED.WEAKNESS ---
HPI - Weakness General Chief complaint: Weakness Stated complaint: swollen leg & Weakness Source: RN notes reviewed History of Present Illness HPI Narrative: Patient presents to emergency department from home via EMS for weakness. Patient states that she has been having progressive swelling of her lower extremities is moved up to her abdomen over the past month. She states that she does have a history of heart failure and is followed by Dr. Madrid she initially been started on Lasix and is increased her dose up to Bumex at this time which she did take this morning patient states that she been having increasing shortness of breath has been able to get up and ambulate secondary to dyspnea and weakness she denies any fevers or chills chest pain abdominal pain nausea vomiting or any other symptoms Related Data Home Medications Medication Instructions Recorded Confirmed aspirin 81 mg tablet,delayed 81 mg PO DAILY 06/01/19 07/04/20 release loratadine 10 mg tablet 10 mg PO DAILY 06/01/19 07/04/20 albuterol sulfate 90 mcg/actuation 1 puff INHALATION Q4H PRN 06/23/19 07/04/20 aerosol inhaler atorvastatin 40 mg PO DAILY 04/28/20 07/04/20 montelukast 10 mg PO DAILY 04/28/20 07/04/20 ohivxexk-azmpzei-vqjw-lutein 1 tablet PO DAILY 04/28/20 07/04/20 Allergies Allergy/AdvReac Type Severity Reaction Status Date / Time erythromycin base Allergy Unknown Abdominal Verified 07/04/20 14:17 pain promethazine Allergy Unknown Hallucinati Verified 07/04/20 14:17 ng epinephrine AdvReac Unknown Palpitation Verified 07/04/20 14:17 s iodine AdvReac Unknown Flushing Verified 07/04/20 14:17 Review of Systems Review of Systems: Narrative: Gen.: Denies fevers or chills ENT: Denies congestion Respiratory: Reports shortness of breath CV: Denies chest pain or palpitations GI: Denies abdominal pain nausea, emesis or diarrhea Musculoskeletal: Denies back pain or muscle pain Neuro: Denies numbness, tingling, reports weakness Skin: Denies rash Except as documented, all other systems reviewed and negative PMFSH Past Medical History Medical History Allergy to environmental factors Anxiety Asthma Chronic low back pain without sciatica Coronary artery disease Diastolic dysfunction Dyslipidemia, goal LDL below 100 Essential (primary) hypertension Hiatal hernia History of diverticulitis History of vertigo Mild persistent asthma without complication Moderate to severe pulmonary hypertension Osteoarthritis Rosacea Surgical History Surgical History S/P AVR (aortic valve replacement) (Unknown) S/P coronary artery stent placement (~2003) Family History Family History Mother Patient's mother is , Onset Age: 82 Family history of lung cancer Father Family history of cardiovascular disease, Onset Age: 67 Grandparent Asthma Social History Social History Smoking packs per day: 2 Smoking cigarettes per day: 40.0 Smoking status: Former smoker Tobacco type: cigarettes Second hand tobacco smoke exposure: No Smoking end date: 05/27/79 Alcohol intake: current Drinks per week: 7 Substance use: never Substance use type: does not use Additional living arrangements comments: But daughter lives in the upstairs apartment. Gender identity (if verbalized by the patient): Female Spiritual care concerns: No Agree to blood products: Yes Exam Narrative: Exam Narrative: APPEARANCE: No acute distress, nontoxic, resting in bed EYES: EOMI HEENT: Normocephalic, atraumatic, OMM RESPIRATORY: No respiratory distress Clear to auscultation bilaterally with no rhonchi wheezing or rales. CARDIOVASCULAR: Irregular irregular with grade 2 out of 6 systolic ejection murmur ABDOMINAL: Soft, no
[2020-07-04 14:47] LABS: Basophils Absolute Auto 0.1 K/mm3 (0.0-0.1); Basophils Percent Auto 1.5 % (0.2-1.2); Eosinophils Absolute Auto 0.1 K/mm3 (0-0.3); Eosinophils Percent Auto 1.3 % (0-4.4); Hematocrit 31.2 % (37.0-47.0); Hemoglobin 9.9 g/dL (12.0-15.0); Immature Granulocyte Absolute 0.02 K/mm3 (0.00-0.031); Immature Granulocyte Percent A 0.3 % (0-0.5); Lymphocytes Absolute Auto 0.93 K/mm3 (0.9-3.2); Lymphocytes Percent Auto 15.5 % (18.3-44.2); Mean Corpuscular HGB Conc 31.7 g/dl (32-36); Mean Corpuscular Hemoglobin 24.8 pg (26-34); Mean Platelet Volume 10.6 fl (7.4-10.4); Monocytes Absolute Auto 0.8 K/mm3 (0.1-0.6); Monocytes Percent Auto 13.8 % (2.6-8.5); Neutrophils Absolute Auto 4.1 K/mm3 (1.3-6.7); Neutrophils Percent Auto 67.6 % (45.5-73.1); Platelet Count Result 316 k/mm3 (150-375); Red Cell Distribution Width 19.5 % (11.5-14.5)
[2020-07-04 14:58] LABS: INR 1.7; Prothrombin Time 20.1 Seconds (11.1-14.7)
[2020-07-04 14:59] LABS: Partial Thromboplastin Time 41.1 SECONDS (22.3-36.8)
[2020-07-04 15:03] LABS: Anion Gap 13 mmol/L (8-16); Blood Urea Nitrogen 13 mg/dL (7-17); Calcium 8.8 mg/dL (8.4-10.2); Carbon Dioxide 22 mmol/L (22-30); Chloride 91 mmol/L (98-107); Estimated CRCL calculation 37 ml/min; Estimated Glomerular Filt Rate 47; Glucose 111 mg/dL (65-105); Potassium 4.5 mmol/L (3.4-5.0); Sodium 126 mmol/L (137-145)
[2020-07-04 15:15] LABS: NT Pro B Type Natriuretic Pept 6550 PG/ML (5-100); Troponin I < 0.012 ng/mL (0.000-0.034)
[2020-07-04 19:29] LABS: Troponin I < 0.012 ng/mL (0.000-0.034)
--- NOTE | 2020-07-04 20:32 | PM.IMHP ---
H&P: HPI History of Present Illness Date/Time: 07/04/20 22:55 Chief Complaint: Increased swelling since April Narrative: Jacquelyn Palacios is a 85 year old female with a past medical history of moderate to severe aortic valve stenosis, severe tricuspid regurgitation, coronary artery disease, COPD and pulmonary hypertension who presented to the ER with increased swelling in both legs and abdomen. The patient had a cardiac catheterization in April and had a stent placed to her RCA. She reports that since she returned home she has been having progressive lower extremity edema extending up through her thighs and into her abdomen. Her legs have become so tight and swollen that she is unable to ambulate in has been mostly wheelchair dependent. She reports that her legs are painful due to the degree of swelling. The patient reports that she was started on Lasix in April in her Lasix dose was increased to b.i.d.. She had no relief in her symptoms from the Lasix and was subsequently switched to Bumex. She has had progressive shortness of breath and dyspnea on exertion. She can no longer ambulate due to her dyspnea and progressive weakness. She denies any significant chest pain. She does report that she has a large hiatal hernia and will have episodes of indigestion. She states that her indigestion is not like her usual chest pain. She reports that due to her hiatal hernia she has had at sensation of early satiety. She has noticed increased cough over the last few days. She reports of vibratory sensation in her lower chest prior to onset of cough. She has had some post-tussive emesis over the last several days. She reports a chronic cough due to her history of asthma and COPD. She has not had any fevers or chills. Her post-tussive emesis consisted of mucus. High she reports decreased urine output over the last several days. She reports that she usually has bowel movements every few days. She does not take any stool softeners. She tries not to strain to have a bowel movement because of a history of hemorrhoids. She denies any hematochezia or melena. She has not noticed any dysuria hematuria or sensation of incomplete bladder emptying. She denies any read since palpitations. She reports that she has some wounds on her bottom due to not being able to get up. She also has wounds on her ankles bilaterally. Source of information is past medical records and patient report. The patient is a good historian. The patient has told me that at her age she would not want her heart restarted if it were to stop. She also would not want to be intubated. Review of Systems Review of Systems: Narrative: 12 systems were reviewed with pertinent positives and negatives per HPI. Except as documented in the HPI, all other systems were reviewed and are negative. [facility] Past Medical History Medical History (Updated 07/05/20 @ 02:36 by Jo Ann Duval DO) Allergy to environmental factors Anxiety Asthma Atrial fibrillation patient refuses anticoagulation Chronic low back pain without sciatica Coronary artery disease Diastolic dysfunction echocardiogram April 2020: Hyperdynamic left ventricle with EF of greater than 70%, moderate to severe aortic valve stenosis with valve area of 1 in peak velocity of 314, severe tricuspid valve regurgitation, mild to moderate mitral valve regurgitation, atrial fibrillation Dyslipidemia, goal LDL below 100 Essential (primary) hypertension Hiatal hernia History of diverticulitis History of vertigo Mild persistent asthma without complication Moderate mitral valve regurgitation Moderate to severe pulmonary hypertension Osteoarthritis Rosacea Severe aortic valve stenosis of bioprosthetic aortic valve that was placed in 2012 Severe tricuspid regurgitation Surgical History Surgical History (Updated 07/04/20 @ 20:36 by Jo Ann Duval DO) S/P AVR (aortic valve replacement) (~2012) Now with severe aortic stenosis o
[2020-07-04] MEDS: CALCIUM CARBONATE (TUMS) 500 MG (200 MG ELEMENTAL) PO (21:29)
[2020-07-04] MEDS: LORazepam (*CRX) 0.5 MG TABLET PO (21:29)
[2020-07-04] MEDS: BUMETANIDE 1 MG TABLET PO (21:30)
[2020-07-04 22:56] LABS: Troponin I < 0.012 ng/mL (0.000-0.034)
[2020-07-05] VITALS (12 sets, daily range): BP systolic 100–106; BP diastolic 58–62; PULSE 77–105; RESP 20; TEMP 36.3–36.6; O2SAT 93–100
[2020-07-05 04:12] LABS: Creatinine Urine 108.2 mg/dL
[2020-07-05 04:34] LABS: Sodium Urine Random < 5 meq/L
[2020-07-05 07:19] LABS: Anion Gap 9 mmol/L (8-16); Blood Urea Nitrogen 14 mg/dL (7-17); Calcium 8.6 mg/dL (8.4-10.2); Carbon Dioxide 24 mmol/L (22-30); Chloride 93 mmol/L (98-107); Estimated CRCL calculation 34 ml/min; Estimated Glomerular Filt Rate 43; Glucose 102 mg/dL (65-105); Potassium 4.5 mmol/L (3.4-5.0); Sodium 126 mmol/L (137-145)
[2020-07-05 07:26] LABS: Transferrin 430 mg/dL (206-381)
[2020-07-05 07:35] LABS: Iron 18 ug/dL (37-170)
[2020-07-05 07:37] LABS: Basophils Absolute Auto 0.1 K/mm3 (0.0-0.1); Basophils Percent Auto 1.1 % (0.2-1.2); Eosinophils Percent Auto 0.6 % (0-4.4); Hematocrit 26.3 % (37.0-47.0); Hemoglobin 8.7 g/dL (12.0-15.0); Immature Granulocyte Absolute 0.03 K/mm3 (0.00-0.031); Immature Granulocyte Percent A 0.5 % (0-0.5); Lymphocytes Percent Auto 14.6 % (18.3-44.2); Mean Corpuscular HGB Conc 33.1 g/dl (32-36); Mean Corpuscular Hemoglobin 25.2 pg (26-34); Mean Corpuscular Volume 76.2 fl (80-100); Mean Platelet Volume 11.1 fl (7.4-10.4); Monocytes Absolute Auto 0.9 K/mm3 (0.1-0.6); Monocytes Percent Auto 14.3 % (2.6-8.5); Neutrophils Absolute Auto 4.2 K/mm3 (1.3-6.7); Neutrophils Percent Auto 68.9 % (45.5-73.1); Platelet Count Result 290 k/mm3 (150-375); Red Blood Count 3.45 M/mm3 (4.2-5.4); Red Cell Distribution Width 19.2 % (11.5-14.5); Reticulocyte Hemoglobin Conten 25.5 pg (28.2-35.7); Reticulocyte Percent 2.92 % (0.7-4.3); White Blood Count 6.2 K/mm3 (4.5-10.0)
[2020-07-05 07:40] LABS: IFOB Positive Control Positive; Immunochemical Fecal Occult Bl Positive (N)
[2020-07-05 07:44] LABS: Percent Iron Saturation 4 % (20-50)
[2020-07-05 08:25] LABS: Folic Acid > 20.0 ng/mL (2.76->20); Vitamin B12 > 1000.0 pg/mL (239-931)
[2020-07-05] MEDS: PANTOPRAZOLE 40 MG TABLET PO (09:09)
[2020-07-05] MEDS: OPTI-GEN TAB 1 TABLET PO (09:09)
[2020-07-05] MEDS: ATORVASTATIN 40 MG TABLET PO (09:09)
[2020-07-05] MEDS: CLOPIDOGREL BISULFATE 75 MG TABLET PO (09:09)
[2020-07-05] MEDS: BUMETANIDE 1 MG TABLET PO ×2 (09:09→17:22)
[2020-07-05] MEDS: LORATADINE 10 MG TABLET PO (09:09)
[2020-07-05] MEDS: MECLIZINE HCL 12.5 MG TABLET PO ×2 (09:09→17:23)
[2020-07-05] MEDS: CALCIUM CARBONATE (TUMS) 500 MG (200 MG ELEMENTAL) PO ×4 (09:09→20:51)
[2020-07-05] MEDS: MONTELUKAST SODIUM 5 MG TABLET PO (09:09)
[2020-07-05] MEDS: METOPROLOL SUCCINATE EXT REL 50 MG TABCR PO (09:12)
[2020-07-05] MEDS: ASPIRIN 81 MG CHEWABLE TABLET PO (10:47)
[2020-07-05] MEDS: FENOFIBRATE NANOCRYSTALLIZED 145 MG TABLET PO (10:48)
--- NOTE | 2020-07-05 11:58 | PM.CNCAR ---
Assessment and Plan Assessment and plan (1) CHF exacerbation: Qualifiers: Heart failure type: right-sided Qualified Code(s): I50.813 - Acute on chronic right heart failure Code(s): I50.9 - Heart failure, unspecified Status: Acute Assessment and Plan: 85-year-old female with multiple medical problems-CAD, history of PCI/stenting (recent PCI on 05/25/2020 with stenting of RCA using 3.0 x 20 mm sirolimus eluting stent); CHF with preserved ejection fraction, history of bioprosthetic aortic valve replacement, persistent atrial fibrillation-not on anticoagulation due to history of GI bleed; microcytic anemia. Patient presented with worsening shortness of breath and abdominal and lower extremity edema. Clinical presentation consistent with acute on chronic CHF with preserved ejection fraction; likely precipitated by patient's underlying valvular heart disease (bioprosthetic aortic valve stenosis; and severe TR as documented on the recent echo); and anemia. Patient had recent PCI, and does not have any ongoing angina. Her troponins are negative. EKG shows atrial fibrillation with controlled ventricular response. -continue diuresis with close monitoring of electrolytes and renal function. -continue dual antiplatelet therapy with aspirin and clopidogrel; continue beta-tay and statin. -patient has moderate severe bioprosthetic aortic valve stenosis based on recent echocardiogram. She will need further evaluation to determine if her bioprosthetic aortic valve stenosis is truly severe. In that case, she can be considered for valve in valve TAVR. Recommend re-evaluation of patient's bioprosthetic aortic valve once she is clinically stable. -recommend evaluation and treatment of patient's severe anemia. (2) Coronary artery disease: Qualifiers: Coronary Disease-Associated Artery/Lesion type: [place] artery [place] vs. transplanted heart: [place] heart Associated angina: without angina Qualified Code(s): I25.10 - Atherosclerotic heart disease of [place] coronary artery without angina pectoris Code(s): I25.10 - Atherosclerotic heart disease of [place] coronary artery without angina pectoris Status: Chronic Assessment and Plan: Dual antiplatelet therapy, statin, beta-tay (3) S/P AVR (aortic valve replacement): Onset Date: ~2012 Code(s): Z95.2 - Presence of prosthetic heart valve Status: Acute Assessment and Plan: Recent echocardiogram reportedly showed moderate severe bioprosthetic aortic valve stenosis. Patient may need further evaluation and determine the true severity of the bioprosthetic aortic valve stenosis. (4) Atrial fibrillation: Code(s): I48.91 - Unspecified atrial fibrillation Status: Acute Assessment and Plan: Rate control with metoprolol. Patient has history of GI bleed and has not been on anticoagulation. She is currently on dual antiplatelet therapy for recent PCI/stenting. (5) Anemia: Code(s): D64.9 - Anemia, unspecified Status: Acute Assessment and Plan: Patient has severe anemia. Recommend treatment of anemia. Anemia may be precipitating patient's heart failure. History of Present Illness History of Present Illness Consult date/time: 07/05/20 11:58 Date of consult: 07/05/2020 Reason for consult:CHF Requesting physician:DO Peggy Chief complaint: Shortness of breath HPI: 85-year-old female with multiple medical problems-CAD, history of PCI/stenting (recent PCI on 05/25/2020 with stenting of RCA using 3.0 x 20 mm sirolimus eluting stent); CHF with preserved ejection fraction, history of bioprosthetic aortic valve replacement, persistent atrial fibrillation-not on anticoagulation due to history of GI bleed; microcytic anemia. Patient follows up with Dr. Madrid for cardiovascular care. Patient presented to [facility] on 07/04/2020 with complaints of generalized weakness and swelling in lower extre
--- NOTE | 2020-07-05 13:23 | PM.IMPN ---
Progress Note: A&P Assessment and Plan (1) CHF exacerbation: Qualifiers: Heart failure type: right-sided Qualified Code(s): I50.813 - Acute on chronic right heart failure Code(s): I50.9 - Heart failure, unspecified Status: Acute Assessment and Plan: Acute on chronic diastolic CHF with preserved ejection fraction as demonstrated on recent echocardiogram. With CAD and valvular disease, recent coronary stenting 04/2020. Management per cardiology, appreciate input. She follows with Dr Madrid and has been seen by Dr España today. Home Bumex increased from 1mg once daily to twice daily. Continue to monitor with daily weights, I&Os. Monitor BMP. (2) Acute renal insufficiency: Code(s): N28.9 - Disorder of kidney and ureter, unspecified Status: Acute Assessment and Plan: May be related to hypoperfusion given lower blood pressures. Cr up to 1.2, recently 0.7 several weeks ago in April. Monitor renal function and urine output especially given her need for diuresis. (3) Acute hyponatremia: Code(s): E87.1 - Hypo-osmolality and hyponatremia Status: Acute Assessment and Plan: Urine studies suggestive of pre-renal etiology, may be related to heart failure. Will monitor serum sodium with diuresis. (4) COPD (chronic obstructive pulmonary disease): Qualifiers: COPD type: unspecified COPD Qualified Code(s): J44.9 - Chronic obstructive pulmonary disease, unspecified Code(s): J44.9 - Chronic obstructive pulmonary disease, unspecified Status: Chronic Assessment and Plan: Some mild shortness of breath without acute respiratory distress. Tolerating room air. Continue singulair. Add albuterol PRN. (5) Atrial fibrillation: Code(s): I48.91 - Unspecified atrial fibrillation Status: Chronic Assessment and Plan: Rate controlled on home metoprolol. Not on systemic anticoagulation documented related to history of GI bleeding. She does remain on dual antiplatelet therapy since her recent coronary stenting. (6) Anemia: Code(s): D64.9 - Anemia, unspecified Status: Acute Assessment and Plan: She is noted to have microcytic anemia. Appears chronic based on review of recent lab work however Hgb is declining since 04/2020. Stool occult blood positive. She reports minimal red blood with wiping after BMs which she attributes to her known hemorrhoids. Last GI evaluation in [address] Snow shows internal hemorrhoids and extensive diverticulosis. Iron is low. Will start oral iron supplementation. Monitor CBC. I discussed this with the patient and offered GI consultation. She tells me she does not want to repeat a colonoscopy at this time, thus will hold off on GI consultation. Given her iron deficiency anemia and minimal bleeding, she is encouraged to follow up with Dr Snow and consider repeating colonoscopy outpatient. (7) Generalized weakness: Code(s): R53.1 - Weakness Status: Acute Assessment and Plan: Suspect related to comorbidities discussed above, may be worsened with increased leg swelling. Notes she had been using a wheelchair at home for a least one week. Continue PT/OT. Subjective Date/time seen: 07/05/20 1245 Interval history: Ms. Palacios is an 85yo F admitted for acute on chronic CHF exacerbation. She reports she has had a cough since April, sometimes minimally productive with clear sputum. She denies chest pain or feeling short of breath at rest. She reports increased weakness at home and in the last week has mostly been using a wheel chair. Prior to that she was walking with
--- NOTE | 2020-07-05 13:27 | PCPTNOTE ---
Attempted PT evaluation. Pt states she just got back to bed and too fatigued to participate. Will attempt again tomorrow. Marissa Au, DPT
[2020-07-05] MEDS: FERROUS SULFATE 324 MG TABLET PO (14:33)
[2020-07-05 15:21] LABS: Add Urine Microscopic? YES; Appearance Urine Clear (Clear); Bacteria Urine Trace /hpf; Bilirubin Urine Negative (Negative); Blood Urine Negative (Negative); Color Urine Yellow (Yellow); Glucose Urine UA Negative (Negative); Hyaline Casts Urine 30-49 /lpf; Ketones Urine Negative (Negative); Leukocyte Esterase Ur Negative LEU/UL (Negative); Mucus Urine Rare /lpf; Nitrate Urine Negative (Negative); Protein Urine 1+ mg/dL (Negative); RBC Urine 0-2 /hpf (0-2); Specific Grav Ur 1.012 (1.001-1.035); Squamous Epithelial Cell Urine Rare /hpf (Few); Urobilinogen Urine Negative mg/dL (<2.0); WBC Urine 0-3 /hpf
[2020-07-05] MEDS: LORazepam (*CRX) 0.5 MG TABLET PO (20:51)
[2020-07-06] VITALS (9 sets, daily range): BP systolic 92–116; BP diastolic 50–65; PULSE 92–107; RESP 18–20; TEMP 36.3–36.6; O2SAT 99–100; BMI 40.2
[2020-07-06] MEDS: guaiFENesin/DEXTROMETHORPHAN 10 ML UDC 5 ML PO ×2 (00:10→08:20)
[2020-07-06 06:23] LABS: Basophils Percent Auto 0.6 % (0.2-1.2); Eosinophils Percent Auto 0.6 % (0-4.4); Hematocrit 26.9 % (37.0-47.0); Hemoglobin 8.7 g/dL (12.0-15.0); Immature Granulocyte Absolute 0.03 K/mm3 (0.00-0.031); Immature Granulocyte Percent A 0.4 % (0-0.5); Lymphocytes Absolute Auto 0.76 K/mm3 (0.9-3.2); Lymphocytes Percent Auto 11.4 % (18.3-44.2); Mean Corpuscular HGB Conc 32.3 g/dl (32-36); Mean Corpuscular Volume 77.3 fl (80-100); Mean Platelet Volume 11.2 fl (7.4-10.4); Monocytes Absolute Auto 0.8 K/mm3 (0.1-0.6); Monocytes Percent Auto 12.1 % (2.6-8.5); Neutrophils Percent Auto 74.9 % (45.5-73.1); Platelet Count Result 304 k/mm3 (150-375); Red Blood Count 3.48 M/mm3 (4.2-5.4); Red Cell Distribution Width 19.2 % (11.5-14.5); White Blood Count 6.7 K/mm3 (4.5-10.0)
[2020-07-06 06:39] LABS: Alanine Aminotransferase 78 U/L (4-35); Albumin Level 3.1 g/dL (3.5-5.1); Alkaline Phosphatase 58 U/L (38-126); Anion Gap 7 mmol/L (8-16); Aspartate Amino Transferase 243 U/L (14-36); Bilirubin,Total 1.8 mg/dL (0.2-1.3); Blood Urea Nitrogen 16 mg/dL (7-17); Calcium 8.5 mg/dL (8.4-10.2); Carbon Dioxide 24 mmol/L (22-30); Chloride 92 mmol/L (98-107); Estimated CRCL calculation 32 ml/min; Estimated Glomerular Filt Rate 39; Glucose 115 mg/dL (65-105); Magnesium 1.8 mg/dL (1.6-2.3); Phosphorus 3.4 mg/dL (2.5-4.5); Potassium 4.4 mmol/L (3.4-5.0); Sodium 123 mmol/L (137-145)
[2020-07-06] MEDS: ATORVASTATIN 40 MG TABLET PO (08:14)
[2020-07-06] MEDS: ASPIRIN 81 MG CHEWABLE TABLET PO (08:14)
[2020-07-06] MEDS: BUMETANIDE 1 MG TABLET PO (08:15)
[2020-07-06] MEDS: CALCIUM CARBONATE (TUMS) 500 MG (200 MG ELEMENTAL) PO ×4 (08:15→20:06)
[2020-07-06] MEDS: CLOPIDOGREL BISULFATE 75 MG TABLET PO (08:16)
[2020-07-06] MEDS: FERROUS SULFATE 324 MG TABLET PO (08:18)
[2020-07-06] MEDS: FENOFIBRATE NANOCRYSTALLIZED 145 MG TABLET PO (08:18)
[2020-07-06] MEDS: METOPROLOL SUCCINATE EXT REL 50 MG TABCR PO (08:19)
[2020-07-06] MEDS: MONTELUKAST SODIUM 5 MG TABLET PO (08:19)
[2020-07-06] MEDS: LORATADINE 10 MG TABLET PO (08:19)
[2020-07-06] MEDS: OPTI-GEN TAB 1 TABLET PO (08:20)
[2020-07-06] MEDS: PANTOPRAZOLE 40 MG TABLET PO (08:20)
[2020-07-06 12:09] LABS: Anion Gap 7 mmol/L (8-16); Blood Urea Nitrogen 16 mg/dL (7-17); Calcium 8.5 mg/dL (8.4-10.2); Carbon Dioxide 25 mmol/L (22-30); Chloride 93 mmol/L (98-107); Estimated CRCL calculation 32 ml/min; Estimated Glomerular Filt Rate 39; Glucose 121 mg/dL (65-105); Potassium 4.2 mmol/L (3.4-5.0); Sodium 125 mmol/L (137-145)
--- NOTE | 2020-07-06 12:13 | PM.PNCARD ---
Progress Note: A&P Assessment and Plan (1) Acute on chronic diastolic (congestive) heart failure: Code(s): I50.33 - Acute on chronic diastolic (congestive) heart failure Status: Acute Assessment and Plan: Patient presents with acute on chronic CHF, with severe edema of her legs and posterior. Perhaps all related to diastolic heart failure that we need to consider if she may have right heart failure secondary to pulmonary issues, or heart failure secondary to a stenotic prosthetic aortic valve. Currently taking Bumex 1 mg p.o. b.i.d.; will switch to IV Bumex Now that she has a Tracy catheter placed we can evaluate her output better. Spoke to daughter Justine ([phone]). (2) Right heart failure: Code(s): I50.810 - Right heart failure, unspecified Status: Acute Assessment and Plan: A lot of edema suggesting a lot of right heart failure. (3) S/P AVR (aortic valve replacement): Onset Date: ~2012 Code(s): Z95.2 - Presence of prosthetic heart valve Status: Acute Assessment and Plan: History of aortic valve replacement, with echo in April showing moderate to severe aortic stenosis. Will need re-evaluation once more stable. (4) S/P coronary artery stent placement: Onset Date: ~2003 Code(s): Z95.5 - Presence of coronary angioplasty implant and graft Status: Acute Assessment and Plan: CAD, angina, stent placement in April, doing well. Cont DAPT. (5) Atrial fibrillation: Code(s): I48.91 - Unspecified atrial fibrillation Status: Chronic Assessment and Plan: Not anticoagulation because of history of GI bleed and being on dual anti-platelet therapy. (6) Anemia: Code(s): D64.9 - Anemia, unspecified Status: Acute Assessment and Plan: Check iron levels and guaiac stool, follow H&H Further workup? (7) Chronic kidney disease, stage 3: Code(s): N18.30 - Chronic kidney disease, stage 3 unspecified Status: Acute Assessment and Plan: Daily BMP well being diuresed Subjective Date/time seen: 07/06/20 12:13 Interval history: Follow-up for CHF, CAD, stenotic prosthetic aortic valve, anemia Date of service 07/06/2020: Unclear how well the patient is diuresing; Tracy placed this morning. Not requiring any oxygen but does feel orthopnea Jayson and short of breath with activity. Says she feels ?lousy.? Abdomen very full, poor appetite, heavy legs. Review of Systems Constitutional: Constitutional: Reports fatigue, Reports lethargy and Reports weakness ENT: Denies nasal congestion Cardiovascular: Cardiovascular: Denies chest pain, Reports pedal edema and Reports leg edema Respiratory: Respiratory: Denies hemoptysis, Reports dyspnea and Reports dyspnea on exertion Gastrointestinal: Gastrointestinal: Reports abdominal pain and Denies hematochezia Genitourinary: Genitourinary: Denies hematuria Musculoskeletal: Musculoskeletal: Reports back pain Integumentary/Breasts: Skin/Breast: Denies rash Neurologic: Denies confusion Psychiatric: Psychiatric: Reports no additional psychiatric complaints Exam Const: General: no acute distress and uncomfortable HENMT: General nose exam: no epistaxis Mouth: Yes moist mucous membranes Eyes: EOM: EOMs intact bilaterally Neck: Neck: supple Resp: Effort & Inspection: normal respiratory effort Auscultation: rales (Rales in left base) Cardio: Rhythm: abnormal rhythm irregularly irregular Heart sounds: Murmur heart sound present (2/6 DION ULSB and apex) GI: Inspection: distended GI Palp: Yes Firmness to palpation present (GI) and No Tenderness to palpation present (GI) Other: Edema of posterior abdominal wall a
--- NOTE | 2020-07-06 14:19 | PM.IMPN ---
Progress Note: A&P Assessment and Plan (1) CHF exacerbation: Qualifiers: Heart failure type: right-sided Qualified Code(s): I50.813 - Acute on chronic right heart failure Code(s): I50.9 - Heart failure, unspecified Status: Acute Assessment and Plan: Acute on chronic diastolic CHF with preserved ejection fraction as demonstrated on recent echocardiogram. With CAD and valvular disease, recent coronary stenting 04/2020. Management per cardiology, appreciate input. She follows with Dr Madrid and has been seen by Dr Hernandez today. Home Bumex increased from 1mg once daily to twice daily, switched to IV today. Continue to monitor with daily weights, I&Os. Monitor BMP. Was not urinating well, Tracy catheter placed to record accurate I&Os. (2) Acute renal insufficiency: Code(s): N28.9 - Disorder of kidney and ureter, unspecified Status: Acute Assessment and Plan: May be related to hypoperfusion given lower blood pressures. Cr up to 1.3, recently 0.7 several weeks ago in April. May be related to urinary retention noted today? Recheck BMP in AM, consider nephrology consultation if no improvement after Tracy. Monitor renal function and urine output especially given her need for diuresis. (3) Acute hyponatremia: Code(s): E87.1 - Hypo-osmolality and hyponatremia Status: Acute Assessment and Plan: Urine studies suggestive of pre-renal etiology, may be related to heart failure. Will monitor serum sodium with diuresis. Down to 123 this AM, repeat this afternoon is 125. Recheck in AM. (4) COPD (chronic obstructive pulmonary disease): Qualifiers: COPD type: unspecified COPD Qualified Code(s): J44.9 - Chronic obstructive pulmonary disease, unspecified Code(s): J44.9 - Chronic obstructive pulmonary disease, unspecified Status: Chronic Assessment and Plan: Some mild shortness of breath without acute respiratory distress, likely multifactorial due to COPD, valvular disease, CHF, etc. Tolerating room air. Continue singulair. Add albuterol PRN. (5) Atrial fibrillation: Code(s): I48.91 - Unspecified atrial fibrillation Status: Chronic Assessment and Plan: Rate controlled on home metoprolol. Not on systemic anticoagulation documented related to history of GI bleeding. She does remain on dual antiplatelet therapy since her recent coronary stenting. (6) Anemia: Code(s): D64.9 - Anemia, unspecified Status: Acute Assessment and Plan: She is noted to have microcytic anemia. Appears chronic based on review of recent lab work however Hgb is declining since 04/2020. Stool occult blood positive. She reports minimal red blood with wiping after BMs which she attributes to her known hemorrhoids. Last GI evaluation in [address] Snow shows internal hemorrhoids and extensive diverticulosis. Iron is low. Started oral iron supplementation. Hesitant to give IV due to significant swelling. B12 and Folate levels are normal. Platelets normal. Monitor CBC. I discussed this with the patient and offered GI consultation. She tells me she does not want to repeat a colonoscopy, thus I will hold off on GI consultation. Given her iron deficiency anemia and minimal bleeding, she is encouraged to follow up with Dr Snow and reconsider repeating colonoscopy outpatient. She is again educated on the importance of this today. (7) Generalized weakness: Code(s): R53.1 - Weakness Status: Acute Assessment and Plan: Suspect related to comorbidities discussed above, may be worsened with increased swelling. Notes she had been using a wheelchair at home for a l
[2020-07-06] MEDS: MECLIZINE HCL 12.5 MG TABLET PO ×2 (15:28→19:40)
[2020-07-06] MEDS: BUMETANIDE INJ 1 MG/4 ML VIAL IV PUSH ×2 (15:28→22:59)
[2020-07-06] MEDS: LORazepam (*CRX) 0.5 MG TABLET PO (20:06)
[2020-07-07] VITALS (10 sets, daily range): BP systolic 92–100; BP diastolic 51–70; PULSE 89–111; RESP 16–24; TEMP 36.3–36.8; O2SAT 96–98
[2020-07-07 06:31] LABS: Basophils Percent Auto 0.4 % (0.2-1.2); Eosinophils Percent Auto 0.4 % (0-4.4); Hematocrit 25.8 % (37.0-47.0); Hemoglobin 8.6 g/dL (12.0-15.0); Immature Granulocyte Absolute 0.03 K/mm3 (0.00-0.031); Immature Granulocyte Percent A 0.3 % (0-0.5); Lymphocytes Absolute Auto 0.71 K/mm3 (0.9-3.2); Lymphocytes Percent Auto 7.9 % (18.3-44.2); Mean Corpuscular HGB Conc 33.3 g/dl (32-36); Mean Corpuscular Hemoglobin 24.4 pg (26-34); Mean Corpuscular Volume 73.3 fl (80-100); Mean Platelet Volume 10.9 fl (7.4-10.4); Monocytes Absolute Auto 1.1 K/mm3 (0.1-0.6); Monocytes Percent Auto 11.8 % (2.6-8.5); Neutrophils Absolute Auto 7.1 K/mm3 (1.3-6.7); Neutrophils Percent Auto 79.2 % (45.5-73.1); Platelet Count Result 303 k/mm3 (150-375); Red Blood Count 3.52 M/mm3 (4.2-5.4); Red Cell Distribution Width 19.2 % (11.5-14.5)
[2020-07-07 06:48] LABS: Anion Gap 5 mmol/L (8-16); Blood Urea Nitrogen 18 mg/dL (7-17); Calcium 8.2 mg/dL (8.4-10.2); Carbon Dioxide 27 mmol/L (22-30); Chloride 92 mmol/L (98-107); Estimated CRCL calculation 35 ml/min; Estimated Glomerular Filt Rate 43; Glucose 93 mg/dL (65-105); Sodium 124 mmol/L (137-145)
[2020-07-07 06:54] LABS: Iron 17 ug/dL (37-170)
[2020-07-07 06:55] LABS: Potassium 3.8 mmol/L (3.4-5.0)
[2020-07-07 07:03] LABS: Percent Iron Saturation 4 % (20-50)
[2020-07-07 08:48] LABS: Hepatitis B Surface Antigen Negative (Negative)
[2020-07-07] MEDS: METOPROLOL SUCCINATE EXT REL 50 MG TABCR PO (08:50)
[2020-07-07] MEDS: CALCIUM CARBONATE (TUMS) 500 MG (200 MG ELEMENTAL) PO ×4 (08:50→20:35)
[2020-07-07] MEDS: MONTELUKAST SODIUM 5 MG TABLET PO (08:50)
[2020-07-07] MEDS: LORATADINE 10 MG TABLET PO (08:51)
[2020-07-07] MEDS: ATORVASTATIN 40 MG TABLET PO (08:51)
[2020-07-07] MEDS: CLOPIDOGREL BISULFATE 75 MG TABLET PO (08:51)
[2020-07-07] MEDS: PANTOPRAZOLE 40 MG TABLET PO (08:51)
[2020-07-07] MEDS: FERROUS SULFATE 324 MG TABLET PO (08:51)
[2020-07-07] MEDS: OPTI-GEN TAB 1 TABLET PO (08:52)
[2020-07-07] MEDS: BUMETANIDE INJ 1 MG/4 ML VIAL IV PUSH ×2 (08:52→18:17)
[2020-07-07] MEDS: FENOFIBRATE NANOCRYSTALLIZED 145 MG TABLET PO (08:52)
[2020-07-07 08:54] LABS: HAV RESULT Negative (Negative); Hepatitis B Core IgM Result Negative (Negative)
--- NOTE | 2020-07-07 09:04 | WPDCDIQUERY2 ---
CDI Query Clarification Request - H&P documentation states, she reports that she has some wounds on her bottom due to not being able to get up. She also has wounds on her ankles bilaterally . -Wound care has documented stage II pressure ulcer left posterior ankle, unstageable pressure ulcer to right posterior ankle. Nursing has documented maceration to right buttock. Please clarify type of wounds documented in H&P.
[2020-07-07 09:06] LABS: Hepatitis C Virus Antibody Negative (Negative)
[2020-07-07] MEDS: ASPIRIN 81 MG CHEWABLE TABLET PO (12:52)
--- NOTE | 2020-07-07 13:36 | PM.IMPN ---
Progress Note: A&P Assessment and Plan (1) CHF exacerbation: Qualifiers: Heart failure type: right-sided Qualified Code(s): I50.813 - Acute on chronic right heart failure Code(s): I50.9 - Heart failure, unspecified Status: Acute Assessment and Plan: Acute on chronic diastolic CHF with preserved ejection fraction as demonstrated on recent echocardiogram. With CAD and valvular disease, recent coronary stenting 04/2020. Management per cardiology, appreciate input. She follows with Dr Madrid.. She remains on 1mg IV bumex twice daily. Continue to monitor with daily weights, I&Os. Monitor BMP. Was not urinating well, Tracy catheter placed to record accurate I&Os. (2) Acute renal insufficiency: Code(s): N28.9 - Disorder of kidney and ureter, unspecified Status: Acute Assessment and Plan: May be related to hypoperfusion given lower blood pressures. Cr up to 1.3, recently 0.7 several weeks ago in April. May be related to urinary retention noted however did not improve much after Tracy placed - appreciate nephrology consultation in this setting. Monitor renal function and urine output especially given her need for diuresis. (3) Acute hyponatremia: Code(s): E87.1 - Hypo-osmolality and hyponatremia Status: Acute Assessment and Plan: Urine studies suggestive of pre-renal etiology, may be related to heart failure. Will monitor serum sodium with diuresis. Still low at 124 and I appreciate nephrology input in this setting. (4) COPD (chronic obstructive pulmonary disease): Qualifiers: COPD type: unspecified COPD Qualified Code(s): J44.9 - Chronic obstructive pulmonary disease, unspecified Code(s): J44.9 - Chronic obstructive pulmonary disease, unspecified Status: Chronic Assessment and Plan: Some mild shortness of breath without acute respiratory distress, likely multifactorial due to COPD, valvular disease, CHF, etc. Tolerating room air. Continue singulair. Add albuterol PRN. (5) Atrial fibrillation: Code(s): I48.91 - Unspecified atrial fibrillation Status: Chronic Assessment and Plan: Rate controlled on home metoprolol. Not on systemic anticoagulation documented related to history of GI bleeding. She does remain on dual antiplatelet therapy since her recent coronary stenting. (6) Anemia: Code(s): D64.9 - Anemia, unspecified Status: Acute Assessment and Plan: She is noted to have microcytic anemia. Appears chronic based on review of recent lab work however Hgb is declining since 04/2020. Stool occult blood positive. She reports minimal red blood with wiping after BMs which she attributes to her known hemorrhoids. Last GI evaluation in [address] Snow shows internal hemorrhoids and extensive diverticulosis. Iron is low. Started oral iron supplementation. Hesitant to give IV due to significant swelling. B12 and Folate levels are normal. Platelets normal. Monitor CBC. I discussed this with the patient and offered GI consultation. She tells me she does not want to repeat a colonoscopy, thus I will hold off on GI consultation. Given her iron deficiency anemia and minimal bleeding, she is encouraged to follow up with Dr Snow and reconsider repeating colonoscopy outpatient. (7) Generalized weakness: Code(s): R53.1 - Weakness Status: Acute Assessment and Plan: Suspect related to comorbidities discussed above, may be worsened with increased swelling. Notes she had been using a wheelchair at home for a least one week. Continue PT/OT. (8) Transaminitis: Code(s):
--- NOTE | 2020-07-07 17:10 | PM.CNNEP ---
Assessment and Plan Assessment and plan (1) Hyponatremia: Code(s): E87.1 - Hypo-osmolality and hyponatremia Status: Acute Assessment and Plan: presumably due to CHF exacerbation/fluid overload - however, her history of COPD/lung disease does make her predisposed to this however, limited improvement probably due to limited diuresis check TSH, cortisol, SPEP, UPEP, and serum/urine osmolality continue fluid restriction follow trend of repeat sodium levels (2) Acute renal insufficiency: Code(s): N28.9 - Disorder of kidney and ureter, unspecified Status: Acute Assessment and Plan: creatinine higher than baseline but stable follow trend for now (3) CHF exacerbation: Qualifiers: Heart failure type: right-sided Qualified Code(s): I50.813 - Acute on chronic right heart failure Code(s): I50.9 - Heart failure, unspecified Status: Acute Assessment and Plan: based on evidence to date, more right-sided than left low urine sodium likely more a manifestation of her cardiac disease (chronic pre-renal azotemia) than volume depletion Cardiology following (4) Anemia: Code(s): D64.9 - Anemia, unspecified Status: Acute Assessment and Plan: chronic issue likely a manifestiona of acute illness as well follow trend of H/H Will continue to follow. History of Present Illness Reason for Consult Consult date: 07/07/20 Reason for consult: hyponatremia Chief Complaint Chief complaint: CHD, acute renal insufficiency, hyponatremia History of Present Illness Narrative: The patient is a 85 year old female with a past medical history as outlined below Presented to [facility] room with complaints of increased swelling in her lower extremities and abdomen. The patient reports slow and and progressive increase in her lower extremity edema with associated and extension up to her thighs and into her abdomen. This has continued to deteriorate despite all conservative therapy that she has tried. Her legs and her abdomen have become so tight that has been difficult for her to even ambulate in general and has since been almost wheelchair dependent because of the severity of the swelling/edema. She reports increased pain in her lower extremities due to the a for mentioned swelling and edema as well. She had been started on diuretic therapy a couple of months ago but despite increasing doses of oral lasix therapy she has not really had much improvement. She was more recently switched over to bumex in the hopes that this would work better for her.Despite this change, the swelling edema and progressive weakness have continued to deteriorate which led to her presentation to the emergency room. Workup and evaluation emergency room demonstrated the patient to be hemodynamically stable (although her blood pressure was a little on the lower side of normal) associated with significant swelling / edema as well as having complaints of increasing shortness of breath as well. Physical exam was significant for clear evidence of volume overload in association with the symptoms as mentioned above. Laboratory findings were unremarkable S aside from acute hyponatremia and a chest x-ray significant for cardiomegaly. She was started on IV diuretic therapy and subsequent admitted the hospital for further evaluation. Since her admission, her creatinine has fluctuated and her fluid/volume status is not all that much significantly better given the limited urine output despite high-dose diuretic therapy that has been instituted. She does not feel any worse in terms of her shortness of breath, swelling, edema but she certainly does not feel any better either.Her kidney function has fluctuated as well presumably due to necessity of IV diuretic therapy but appears relatively stable at this time Renal consultation was requested due to her persistent hypo
--- NOTE | 2020-07-07 20:25 | PM.PNCARD ---
Progress Note: A&P Assessment and Plan (1) Acute on chronic diastolic (congestive) heart failure: Code(s): I50.33 - Acute on chronic diastolic (congestive) heart failure Status: Acute Assessment and Plan: Patient presents with acute on chronic CHF, with anasarca. Perhaps all related to diastolic heart failure that we need to consider if she may have right heart failure secondary to pulmonary issues, or heart failure secondary to a stenotic prosthetic aortic valve. Change to IV Bumex 1 mg b.i.d. on 07/06/2020 with an unimpressive diuresis. Will see if Dr. Thurston has any suggestions; in the meantime will increase Bumex to 2 mg b.i.d.. Only had 1+ protein on urinanalysis so nephrotic syndrome seems unlikely. (2) Right heart failure: Code(s): I50.810 - Right heart failure, unspecified Status: Acute Assessment and Plan: A lot of edema suggesting a lot of right heart failure. Check an apnea link. (3) S/P AVR (aortic valve replacement): Onset Date: ~2012 Code(s): Z95.2 - Presence of prosthetic heart valve Status: Acute Assessment and Plan: History of aortic valve replacement, with echo in April showing moderate to severe aortic stenosis. Will need re-evaluation once more stable within it echo in our office.. (4) S/P coronary artery stent placement: Onset Date: ~2003 Code(s): Z95.5 - Presence of coronary angioplasty implant and graft Status: Acute Assessment and Plan: CAD, angina, stent placement in April, doing well. Cont DAPT. (5) Atrial fibrillation: Code(s): I48.91 - Unspecified atrial fibrillation Status: Chronic Assessment and Plan: Not anticoagulation because of history of GI bleed and being on dual anti-platelet therapy. (6) Anemia: Code(s): D64.9 - Anemia, unspecified Status: Acute Assessment and Plan: Check iron levels and guaiac stool, follow H&H Further workup? (7) Chronic kidney disease, stage 3: Code(s): N18.30 - Chronic kidney disease, stage 3 unspecified Status: Acute Assessment and Plan: Daily BMP while being diuresed Subjective Date/time seen: 07/07/20 20:25 Interval history: Follow-up for CHF, CAD, stenotic prosthetic aortic valve, anemia Date of service 07/06/2020: Unclear how well the patient is diuresing; Tracy placed this morning. Not requiring any oxygen but does feel orthopnea Jayson and short of breath with activity. Says she feels ?lousy.? Abdomen very full, poor appetite, heavy legs. Change to p.o. Bumex to IV Bumex 1 mg b.i.d.. Date of service: 07/07/2020: Patient being seen by Dr. Thurston for chronic kidney disease and hyponatremia., 90-116 mmHg. 140 mil yesterday, not any significant diuresis today period was up in a chair today, not much shortness of breath with activity. Hopes to go home soon which I think is quite unrealistic. Was happy that her daughter got to visit today. Review of Systems Constitutional: Constitutional: Reports fatigue and Reports weakness ENT: Denies epistaxis Cardiovascular: Cardiovascular: Denies chest pain, Reports pedal edema, Reports leg edema and Denies palpitations Gastrointestinal: Gastrointestinal: Reports bloating (Abdominal swelling, probably some ascites, edema) Genitourinary: Genitourinary: Denies hematuria Musculoskeletal: Musculoskeletal: Reports no additional musculoskeletal complaints Neurologic: Denies confusion Psychiatric: Psychiatric: Reports no additional psychiatric complaints and Denies behavioral changes Exam Const: General: comfortable and no acute distress HENMT: Mouth: Yes moist mucous membranes Eyes: EOM: EOMs intact bilaterally Neck:
[2020-07-07] MEDS: LORazepam (*CRX) 0.5 MG TABLET PO (20:35)
[2020-07-08] VITALS (18 sets, daily range): BP systolic 87–93; BP diastolic 49–68; PULSE 57–123; RESP 16–20; TEMP 35.9–36.6; O2SAT 92–99
[2020-07-08 06:45] LABS: Basophils Percent Auto 0.5 % (0.2-1.2); Eosinophils Absolute Auto 0.1 K/mm3 (0-0.3); Eosinophils Percent Auto 1.4 % (0-4.4); Hemoglobin 8.7 g/dL (12.0-15.0); Immature Granulocyte Absolute 0.03 K/mm3 (0.00-0.031); Immature Granulocyte Percent A 0.4 % (0-0.5); Lymphocytes Absolute Auto 0.72 K/mm3 (0.9-3.2); Lymphocytes Percent Auto 9.4 % (18.3-44.2); Mean Corpuscular HGB Conc 32.2 g/dl (32-36); Mean Corpuscular Hemoglobin 24.6 pg (26-34); Mean Corpuscular Volume 76.5 fl (80-100); Mean Platelet Volume 10.6 fl (7.4-10.4); Monocytes Absolute Auto 0.9 K/mm3 (0.1-0.6); Neutrophils Absolute Auto 5.9 K/mm3 (1.3-6.7); Neutrophils Percent Auto 76.3 % (45.5-73.1); Platelet Count Result 269 k/mm3 (150-375); Red Blood Count 3.53 M/mm3 (4.2-5.4); Red Cell Distribution Width 19.8 % (11.5-14.5); White Blood Count 7.7 K/mm3 (4.5-10.0)
[2020-07-08 06:56] LABS: Alanine Aminotransferase 104 U/L (4-35); Albumin Level 3.1 g/dL (3.5-5.1); Alkaline Phosphatase 55 U/L (38-126); Anion Gap 6 mmol/L (8-16); Aspartate Amino Transferase 349 U/L (14-36); Bilirubin,Total 2.1 mg/dL (0.2-1.3); Blood Urea Nitrogen 20 mg/dL (7-17); Calcium 8.5 mg/dL (8.4-10.2); Carbon Dioxide 29 mmol/L (22-30); Chloride 90 mmol/L (98-107); Estimated CRCL calculation 34 ml/min; Estimated Glomerular Filt Rate 43; Glucose 92 mg/dL (65-105); Magnesium 1.8 mg/dL (1.6-2.3); Sodium 125 mmol/L (137-145)
[2020-07-08] MEDS: CALCIUM CARBONATE (TUMS) 500 MG (200 MG ELEMENTAL) PO ×4 (08:10→21:25)
[2020-07-08] MEDS: ATORVASTATIN 40 MG TABLET PO (08:11)
[2020-07-08] MEDS: MECLIZINE HCL 12.5 MG TABLET PO (08:11)
[2020-07-08] MEDS: PANTOPRAZOLE 40 MG TABLET PO (08:11)
[2020-07-08] MEDS: ASPIRIN 81 MG CHEWABLE TABLET PO (08:11)
[2020-07-08] MEDS: OPTI-GEN TAB 1 TABLET PO (08:12)
[2020-07-08] MEDS: CLOPIDOGREL BISULFATE 75 MG TABLET PO (08:12)
[2020-07-08] MEDS: MONTELUKAST SODIUM 5 MG TABLET PO (08:12)
[2020-07-08] MEDS: METOPROLOL SUCCINATE EXT REL 50 MG TABCR PO (08:12)
[2020-07-08] MEDS: FERROUS SULFATE 324 MG TABLET PO (08:12)
[2020-07-08] MEDS: FENOFIBRATE NANOCRYSTALLIZED 145 MG TABLET PO (08:12)
[2020-07-08] MEDS: LORATADINE 10 MG TABLET PO (08:13)
[2020-07-08 09:17] LABS: Free T4 Free Thyroxine Reflex 0.97 ng/dL (0.78-2.19)
[2020-07-08 10:03] LABS: Total Triiodothyronine (T3) 0.58 NG/ML (0.97-1.69)
[2020-07-08 12:31] LABS: Creatinine Urine 100.7 mg/dL
[2020-07-08 12:39] LABS: Creatinine Urine 101.6 mg/dL; Total Protein Urine Random 88 mg/dL; Ur Ttl Prot Creatinine Ratio 0.87 mg/mg (0-0.20)
[2020-07-08 12:48] LABS: Sodium Urine Random < 5 meq/L
--- NOTE | 2020-07-08 13:44 | PM.PNCARD ---
Progress Note: A&P Additional Plan 85-year-old patient with: Volume overload far more right-sided heart failure findings than left-sided failure. She does have chronic coronary artery disease, valvular disease and atrial fibrillation. Recent echocardiogram does demonstrates severe tricuspid valve insufficiency which undoubtedly is playing a role in this as well. She has responded unimpressive lead high-dose Bumex am going to try a low dose of intravenous Dopamine . Alfred Madrid MD [facility] Subjective Date/time seen: 07/08/20 13:44 Interval history: 85-year-old lady with: Coronary and valvular heart disease as well as chronic atrial fibrillation. Patient admitted with symptomatic volume overload far more right-sided failure than left-sided failure. Has mild chronic kidney disease as well. Despite relatively high-dose intravenous Bumex patient is diuresing but very slowly. Sitting in the chair with feet elevated and appears otherwise to be comfortable. Exam Const: General: comfortable and no acute distress Other: Elderly lady seated in the chair lower extremities with pressure wrap and no other specific complaints HENMT: Mouth: Yes moist mucous membranes Eyes: Sclera: sclerae normal Pupils: Equal, round and reactive pupils present Neck: Neck: supple and no JVD Other: Patient with normal carotid upstroke/no bruits Resp: Other: Breath sounds are relatively clear bilaterally Cardio: Rate: regular rate Rhythm: abnormal rhythm irregularly irregular Other: Patient has a grade 2 holosystolic murmur at the right sternal border GI: GI Palp: Yes Soft to palpation Auscultation: normal bowel sounds Other: Per treatment abdomen with significant fluid wave Skin: General skin exam: normal color Neuro: Cognition (Neuro): normal cognition Extrem: Other: Patient with marked chronic appearing lower extremity edema Objective Data Vital Signs Vital Signs: Vital Signs - 24 hr 07/07/20 14:00 07/07/20 16:00 07/07/20 20:35 Temperature 36.8 C Pulse Rate 102 H 93 100 Respiratory Rate 16 Blood Pressure 92/57 L Pulse Oximetry 98 98 07/07/20 22:00 07/07/20 23:23 07/08/20 00:00 Temperature 36.3 C L Pulse Rate 89 99 101 H Respiratory Rate 24 H Blood Pressure 100/70 Pulse Oximetry 98 97 07/08/20 04:00 07/08/20 06:00 07/08/20 08:00 Temperature 36.1 C L Pulse Rate 82 78 87 Respiratory Rate 20 Blood Pressure 90/60 L Pulse Oximetry 99 07/08/20 08:05 07/08/20 08:12 Temperature Pulse Rate 57 L 57 L Respiratory Rate 16 Blood Pressure 90/50 L Pulse Oximetry 97 Intake/Output Intake/Output: Intake & Output 07/05/20 07/06/20 07/07/20 07/08/20 23:59 23:59 23:59 23:59 Intake Total 1340 1010 1590 340 Output Total 1100 1150 900 250 Balance 240 -140 690 90 Meds/Results Medications: Active Medications Generic Name Dose Route Start Last Admin Trade Name Freq PRN Reason Stop Dose Admin Acetaminophen 650 mg 07/04/20 20:26 Acetaminophen 325 Mg Tablet PO QID PRN Pain Albuterol 2 puff 07/05/20 15:08 Albuterol Sulfate (*Sp) Aerosol 1 Puff INHALATION Q6HRT PRN Shortness Of Breath Aspirin 81 mg 07/05/20 08:00 07/08/20 08:11 Aspirin 81 Mg Chewable Tablet PO 81 mg DAILY@0800 [facility] Administration Atorvastatin Calcium 40 mg 07/05/20 09:00 07/08/20 08:11 Atorvastatin 40 Mg Tablet PO 40 mg DAILY [facility] Administration Bumetanide 2 mg 07/08/20 09:00 07/08/20 09:29 Bumetanide Inj 1 Mg/4 Ml Vial IV PUSH Not Given BID [facility] Calcium Carbonate 200 mg 07/04/20 21:00 07/08/20 12:46 Calcium Carbonate (Tums) 500 Mg (200 Mg Elemental) PO 200 mg QID [facility] Administration Clopidogrel Bisulfate 75 mg 07/05/20 09:00 07/08/20 08:12 Clopidogrel Bisulfate 75 Mg Tablet PO 75 mg DAILY [facility] Administration Fenofibrate 145 mg 07/05/20 09:00 07/08/20 08:12 Fenofibrate Nanocrystallized 145 Mg Tablet PO 145 mg QAM [facility]
--- NOTE | 2020-07-08 14:59 | PM.PNNEP ---
Progress Note: A&P Assessment and Plan (1) Hyponatremia: Code(s): E87.1 - Hypo-osmolality and hyponatremia Status: Acute Assessment and Plan: presumably due to CHF exacerbation/fluid overload - however, her history of COPD/lung disease does make her predisposed to this however, limited improvement probably due to limited diuresis follow-up on SPEP, UPEP, and serum/urine osmolality continue fluid restriction follow trend of repeat sodium levels (2) Acute renal insufficiency: Code(s): N28.9 - Disorder of kidney and ureter, unspecified Status: Acute Assessment and Plan: creatinine higher than baseline but stable follow trend for now (3) CHF exacerbation: Qualifiers: Heart failure type: right-sided Qualified Code(s): I50.813 - Acute on chronic right heart failure Code(s): I50.9 - Heart failure, unspecified Status: Acute Assessment and Plan: based on evidence to date, more right-sided than left low urine sodium likely more a manifestation of her cardiac disease (chronic pre-renal azotemia) rather than volume depletion Cardiology following (4) Anemia: Code(s): D64.9 - Anemia, unspecified Status: Acute Assessment and Plan: chronic issue likely a manifestiona of acute illness as well follow trend of H/H Will continue to follow. Subjective Date/time seen: 07/08/20 14:59 No much change in her swelling/edema to date; started on low dose dopamine by Cardiology in the hopes this may better facilitate diuresis given minimal response with currrent therapy to date; no other acute issues or probems voiced at this time. Exam Narrative: Exam Narrative: General: WD/WN female in NAD Heart: normal S1 and S2; no rub Lungs: decreased at bases Abdomen: soft, nontender, nondistended, positive bowel sounds Extremities: no cyanosis or clubbing; 2 - 3+ edema Skin: warm and dry Objective Data Vital Signs Vital Signs: Vital Signs Temp Pulse Resp BP Pulse Ox 07/08/20 12:00 86 07/08/20 08:12 57 L 07/08/20 08:05 57 L 16 90/50 L 97 07/08/20 08:00 87 07/08/20 06:00 36.1 C L 78 20 90/60 L 99 07/08/20 04:00 82 07/08/20 00:00 101 H 07/07/20 23:23 99 97 07/07/20 22:00 36.3 C L 89 24 H 100/70 98 07/07/20 20:35 100 98 07/07/20 16:00 93 Intake/Output Intake/Output: Intake & Output 07/05/20 07/06/20 07/07/20 07/08/20 23:59 23:59 23:59 23:59 Intake Total 1340 1010 1590 340 Output Total 1100 1150 900 250 Balance 240 -140 690 90 Meds/Results Medications: Active Medications Generic Name Dose Route Start Last Admin Trade Name Freq PRN Reason Stop Dose Admin Acetaminophen 650 mg 07/04/20 20:26 Acetaminophen 325 Mg Tablet PO QID PRN Pain Albuterol 2 puff 07/05/20 15:08 Albuterol Sulfate (*Sp) Aerosol 1 Puff INHALATION Q6HRT PRN Shortness Of Breath Aspirin 81 mg 07/05/20 08:00 07/08/20 08:11 Aspirin 81 Mg Chewable Tablet PO 81 mg DAILY@0800 [facility] Administration Atorvastatin Calcium 40 mg 07/05/20 09:00 07/08/20 08:11 Atorvastatin 40 Mg Tablet PO 40 mg DAILY [facility] Administration Bumetanide 2 mg 07/08/20 09:00 07/08/20 09:29 Bumetanide Inj 1 Mg/4 Ml Vial IV PUSH Not Given BID [facility] Calcium Carbonate 200 mg 07/04/20 21:00 07/08/20 12:46 Calcium Carbonate (Tums) 500 Mg (200 Mg Elemental) PO 200 mg QID [facility] Administration Clopidogrel Bisulfate 75 mg 07/05/20 09:00 07/08/20 08:12 Clopidogrel Bisulfate 75 Mg Tablet PO 75 mg DAILY [facility] Administration Fenofibrate 145 mg 07/05/20 09:00 07/08/20 08:12 Fenofibrate Nanocrystallized 145 Mg Tablet PO 145 mg QAM [facility] Administration Ferrous Sulfate 324 mg 07/05/20 13:25 07/08/20 08:12 Ferrous Sulfate 324 Mg Tablet PO 324 mg DAILY [facility] Administration Guaifenesin/Dextromethorphan 5 ml 07/05/20 22:52 0
--- NOTE | 2020-07-08 14:59 | PM.IMPN ---
Progress Note: A&P Assessment and Plan (1) CHF exacerbation: Qualifiers: Heart failure type: right-sided Qualified Code(s): I50.813 - Acute on chronic right heart failure Code(s): I50.9 - Heart failure, unspecified Status: Acute Assessment and Plan: Acute on chronic diastolic CHF with preserved ejection fraction as demonstrated on recent echocardiogram. With CAD and valvular disease, recent coronary stenting 04/2020. Management per cardiology, appreciate input. She follows with Dr Mardid who has seen her today. Discussed case with Dr Madrid his plan to start dobutamine gtt, per hospital protocol will transfer to IMU. Yesterday her IV bumex was increased to 2mg BID, held this morning due to low BP. Continue to monitor with daily weights, I&Os. Monitor BMP. Tracy catheter placed to record accurate I&Os. Diuresing slowly. (2) Acute renal insufficiency: Code(s): N28.9 - Disorder of kidney and ureter, unspecified Status: Acute Assessment and Plan: May be related to hypoperfusion given lower blood pressures. Cr up to 1.3, recently 0.7 several weeks ago in April. May be related to urinary retention noted however did not improve much after Tracy placed - appreciate nephrology consultation in this setting. Monitor renal function and urine output especially given her need for diuresis. (3) Acute hyponatremia: Code(s): E87.1 - Hypo-osmolality and hyponatremia Status: Acute Assessment and Plan: Urine studies suggestive of pre-renal etiology, may be related to heart failure. Will monitor serum sodium with diuresis. Still low at 125 and I appreciate nephrology input in this setting. Further lab studies are pending. (4) COPD (chronic obstructive pulmonary disease): Qualifiers: COPD type: unspecified COPD Qualified Code(s): J44.9 - Chronic obstructive pulmonary disease, unspecified Code(s): J44.9 - Chronic obstructive pulmonary disease, unspecified Status: Chronic Assessment and Plan: Some mild shortness of breath without acute respiratory distress, likely multifactorial due to COPD, valvular disease, CHF, etc. Tolerating room air. Continue singulair. Add albuterol PRN. (5) Atrial fibrillation: Code(s): I48.91 - Unspecified atrial fibrillation Status: Chronic Assessment and Plan: Rate controlled on home metoprolol. Not on systemic anticoagulation documented related to history of GI bleeding. She does remain on dual antiplatelet therapy since her recent coronary stenting. (6) Anemia: Code(s): D64.9 - Anemia, unspecified Status: Acute Assessment and Plan: She is noted to have microcytic anemia. Appears chronic based on review of recent lab work however Hgb is declining since 04/2020. Stool occult blood positive. She reports minimal red blood with wiping after BMs which she attributes to her known hemorrhoids. Last GI evaluation in [address] Snow shows internal hemorrhoids and extensive diverticulosis. Iron is low. Started oral iron supplementation. Hesitant to give IV due to significant swelling. B12 and Folate levels are normal. Platelets normal. Monitor CBC. I discussed this with the patient and offered GI consultation. She tells me she does not want to repeat a colonoscopy, thus I will hold off on GI consultation. Given her iron deficiency anemia and minimal bleeding, she is encouraged to follow up with Dr Snow and reconsider repeating colonoscopy outpatient. Discussed again today with daughter at bedside. (7) Generalized weakness: Code(s): R53.1 - Weakness Status: Acute Assessment and Plan: Suspect rela
[2020-07-08] MEDS: BUMETANIDE INJ 1 MG/4 ML VIAL 2 MG IV PUSH (16:17)
[2020-07-08] MEDS: DOPamine 400 MG/D5W 250 ML 400 MG/250 ML BAG 9.1 MG IV CONT (16:31)
--- NOTE | 2020-07-08 17:58 | ADMGEN ---
This patient, Jacquelyn Palacios, was admitted to IMU Room 204-01 @1758. Patient/family oriented to hospital policies and general routines including ID bracelet, bed and alarms, visiting hours, pain management, procedures, bathroom and other care routines, personal items, smoking policy, room service/diet, and visiting hours. Information on how to activate the Rapid Response Team has been discussed. Patient/Family are encouraged to report perceived risks to care and to ask questions if they do not understand what they are told or what they should do.
[2020-07-08] MEDS: LORazepam (*CRX) 0.5 MG TABLET PO (21:25)
[2020-07-09] VITALS (17 sets, daily range): BP systolic 85–92; BP diastolic 48–61; PULSE 80–114; RESP 18–24; TEMP 35.7–36.3; O2SAT 97–99
[2020-07-09 04:33] LABS: Basophils Percent Auto 0.4 % (0.2-1.2); Eosinophils Absolute Auto 0.1 K/mm3 (0-0.3); Eosinophils Percent Auto 1.2 % (0-4.4); Hematocrit 26.4 % (37.0-47.0); Hemoglobin 8.7 g/dL (12.0-15.0); Immature Granulocyte Absolute 0.03 K/mm3 (0.00-0.031); Immature Granulocyte Percent A 0.4 % (0-0.5); Lymphocytes Absolute Auto 0.68 K/mm3 (0.9-3.2); Lymphocytes Percent Auto 8.8 % (18.3-44.2); Mean Corpuscular Hemoglobin 24.5 pg (26-34); Mean Corpuscular Volume 74.4 fl (80-100); Mean Platelet Volume 10.7 fl (7.4-10.4); Monocytes Absolute Auto 0.9 K/mm3 (0.1-0.6); Monocytes Percent Auto 11.2 % (2.6-8.5); Nucleated Red Blood Cells Perc 0.3 % (0.0-0.2); Platelet Count Result 283 k/mm3 (150-375); Red Blood Count 3.55 M/mm3 (4.2-5.4); Red Cell Distribution Width 19.4 % (11.5-14.5); White Blood Count 7.7 K/mm3 (4.5-10.0)
[2020-07-09 04:48] LABS: Alanine Aminotransferase 121 U/L (4-35); Albumin Level 2.9 g/dL (3.5-5.1); Alkaline Phosphatase 59 U/L (38-126); Anion Gap 6 mmol/L (8-16); Aspartate Amino Transferase 408 U/L (14-36); Bilirubin,Total 2.4 mg/dL (0.2-1.3); Blood Urea Nitrogen 21 mg/dL (7-17); Calcium 8.1 mg/dL (8.4-10.2); Carbon Dioxide 27 mmol/L (22-30); Chloride 91 mmol/L (98-107); Estimated CRCL calculation 37 ml/min; Estimated Glomerular Filt Rate 47; Glucose 111 mg/dL (65-105); Magnesium 1.7 mg/dL (1.6-2.3); Phosphorus 3.2 mg/dL (2.5-4.5); Potassium 3.9 mmol/L (3.4-5.0); Sodium 124 mmol/L (137-145)
[2020-07-09 04:59] LABS: IFOB Positive Control Positive; Immunochemical Fecal Occult Bl Negative (N)
--- NOTE | 2020-07-09 09:11 | PM.PNCARD ---
Progress Note: A&P Additional Plan 85-year-old lady with: Volume overload congestive heart failure more right-sided than left-sided findings. She has responded better after addition of low-dose dopamine to her regimen. Since admission her weight is down about 8 lb. I would like to keep the low-dose dopamine going for at least another 24 hours since she seems to be benefitting from it. Blood pressure is marginal but this is not a new problem for this lady. Renal function is actually better by lab data. Consider discharge in the next 24-48 hours once she has been optimized and is off of dopamine. Alfred Madrid MD [facility] Subjective Date/time seen: 07/09/20 09:11 Interval history: 85-year-old lady with: Coronary and valvular heart disease as well as chronic atrial fibrillation. Patient admitted with symptomatic volume overload far more right-sided failure than left-sided failure. Has mild chronic kidney disease as well. Started on low-dose dopamine yesterday to try to stimulate more of a diuresis. She had to be moved down to IMU for this reason. She looks rather weak this morning but offers no specific complaints. Exam Const: General: comfortable and no acute distress Other: Weak elderly lady in no apparent distress HENMT: Mouth: Yes dry mucous membranes Eyes: Sclera: sclerae normal Pupils: Equal, round and reactive pupils present Neck: Neck: supple Thyroid: thyroid normal Resp: Effort & Inspection: normal respiratory effort Auscultation: clear to auscultation bilaterally Other: Breath sounds essentially clear Cardio: Other: Grade 2/6 systolic murmur at the base does not radiate GI: Auscultation: normal bowel sounds Skin: General skin exam: normal color Neuro: Cognition (Neuro): normal cognition Extrem: Other: Patient's lower extremity edema is clearly improved mild edema to palpation but no longer tense. Objective Data Vital Signs Vital Signs: Vital Signs - 24 hr 07/08/20 12:00 07/08/20 14:00 07/08/20 16:00 Temperature 36.6 C Pulse Rate 86 90 Respiratory Rate 18 Blood Pressure 93/56 L 87/49 L Pulse Oximetry 99 07/08/20 16:31 07/08/20 16:41 07/08/20 16:43 Temperature 35.9 C L Pulse Rate 86 102 H 102 H Respiratory Rate 18 18 Blood Pressure 92/68 L Pulse Oximetry 99 99 07/08/20 17:03 07/08/20 17:54 07/08/20 19:34 Temperature 36.0 C L Pulse Rate 98 122 H 123 H Respiratory Rate 20 Blood Pressure 87/56 L Pulse Oximetry 92 07/08/20 20:00 07/08/20 22:00 07/08/20 23:59 Temperature 36.0 C L Pulse Rate 118 H 115 H 118 H Respiratory Rate 18 Blood Pressure 90/60 L Pulse Oximetry 92 97 07/09/20 00:00 07/09/20 02:00 07/09/20 04:00 Temperature 35.9 C L Pulse Rate 111 H 106 H 96 Respiratory Rate 20 Blood Pressure 85/59 L Pulse Oximetry 97 97 07/09/20 06:00 07/09/20 08:13 Temperature 36.0 C L Pulse Rate 110 H 108 H Respiratory Rate 24 H Blood Pressure 85/61 L Pulse Oximetry 97 Intake/Output Intake/Output: Intake & Output 07/06/20 07/07/20 07/08/20 07/09/20 23:59 23:59 23:59 23:59 Intake Total 1010 1590 930 712 Output Total 1150 900 975 400 Balance -140 690 -45 312 Meds/Results Medications: Active Medications Generic Name Dose Route Start Last Admin Trade Name Marcinq PRN Reason Stop Dose Admin Acetaminophen 650 mg 07/04/20 20:26 Acetaminophen 325 Mg Tablet PO QID PRN Pain Albuterol 2 puff 07/05/20 15:08 Albuterol Sulfate (*Sp) Aerosol 1 Puff INHALATION Q6HRT PRN Shortness Of Breath Aspirin 81 mg 07/05/20 08:00 07/08/20 08:11 Aspirin 81 Mg Chewable Tablet PO 81 mg DAILY@0800 MARGIE Administration Atorvastatin Calcium 40 mg 07/05/20 09:00 07/08/20 08:11 Atorvastatin 40 Mg Tablet PO 40 mg DAILY MARGIE Administration Bumetanide 2 mg 07/08/20 09:00 07/08/20 16:17 Bumetanide Inj 1 Mg/4 Ml Vial IV PUSH 2 mg BID MARGIE Administration Calcium Carbonate
[2020-07-09] MEDS: MAGNESIUM OXIDE 200 MG TABLET PO ×2 (09:52→21:07)
[2020-07-09] MEDS: CALCIUM CARBONATE (TUMS) 500 MG (200 MG ELEMENTAL) PO ×3 (09:52→21:06)
[2020-07-09] MEDS: FENOFIBRATE NANOCRYSTALLIZED 145 MG TABLET PO (09:53)
[2020-07-09] MEDS: MONTELUKAST SODIUM 5 MG TABLET PO (09:55)
[2020-07-09] MEDS: CLOPIDOGREL BISULFATE 75 MG TABLET PO (09:55)
[2020-07-09] MEDS: PANTOPRAZOLE 40 MG TABLET PO (09:55)
[2020-07-09] MEDS: ATORVASTATIN 40 MG TABLET PO (09:55)
[2020-07-09] MEDS: BUMETANIDE INJ 1 MG/4 ML VIAL 2 MG IV PUSH ×2 (09:55→18:05)
[2020-07-09] MEDS: METOPROLOL SUCCINATE EXT REL 50 MG TABCR PO (09:56)
[2020-07-09] MEDS: OPTI-GEN TAB 1 TABLET PO (09:56)
[2020-07-09] MEDS: ASPIRIN 81 MG CHEWABLE TABLET PO (09:56)
[2020-07-09] MEDS: LORATADINE 10 MG TABLET PO (09:56)
[2020-07-09] MEDS: FERROUS SULFATE 324 MG TABLET PO (09:56)
--- NOTE | 2020-07-09 13:06 | P.PNIM_ITS ---
Progress Note: A&P Assessment and Plan (1) CHF exacerbation: Qualifiers: Heart failure type: right-sided Qualified Code(s): I50.813 - Acute on chronic right heart failure Code(s): I50.9 - Heart failure, unspecified Status: Acute Assessment and Plan: * Acute on chronic diastolic CHF with preserved ejection fraction as demonstrated on recent echocardiogram. With CAD and valvular disease, recent coronary stenting 04/2020. * Management per cardiology, appreciate input. She follows with Dr Madrid who has seen her today. Discussed case with Dr Madrid his plan to continue dobutamine gtt, likely for another 24 hrs since she is responding well to it. * Today she remains on IV bumex 2mg BID. * Continue to monitor with daily weights, I&Os. Monitor BMP. * Tracy catheter placed to record accurate I&Os. Diuresing slowly. (2) Acute renal insufficiency: Code(s): N28.9 - Disorder of kidney and ureter, unspecified Status: Acute Assessment and Plan: * Improving. May be related to hypoperfusion given lower blood pressures. * Appreciate nephrology recommendations. * Monitor renal function and urine output especially given her need for diuresis. (3) Acute hyponatremia: Code(s): E87.1 - Hypo-osmolality and hyponatremia Status: Acute Assessment and Plan: * Urine studies suggestive of pre-renal etiology, may be related to heart failure. Will monitor serum sodium with diuresis. * Low fluctuating between 124-125 and I appreciate nephrology input in this setting. Further lab studies are pending. (4) COPD (chronic obstructive pulmonary disease): Qualifiers: COPD type: unspecified COPD Qualified Code(s): J44.9 - Chronic obstructive pulmonary disease, unspecified Code(s): J44.9 - Chronic obstructive pulmonary disease, unspecified Status: Chronic Assessment and Plan: * Some mild shortness of breath without acute respiratory distress, likely multifactorial due to COPD, valvular disease, CHF, etc. * Tolerating room air without respiratory distress. * Continue singulair. Add albuterol PRN. (5) Atrial fibrillation: Code(s): I48.91 - Unspecified atrial fibrillation Status: Chronic Assessment and Plan: * Rate controlled on home metoprolol. * Not on systemic anticoagulation documented related to history of GI bleeding. She does remain on dual antiplatelet therapy since her recent coronary stenting. (6) Anemia: Code(s): D64.9 - Anemia, unspecified Status: Acute Assessment and Plan: * She is noted to have microcytic anemia. H&H low but stable. Appears chronic based on review of recent lab work. * Stool occult blood positive. She reports minimal red blood with wiping after BMs which she attributes to her known hemorrhoids. Last GI evaluation in [address] Snow shows internal hemorrhoids and extensive diverticulosis. * Iron is low. Started oral iron supplementation. Hesitant to give IV due to significant swelling. B12 and Folate levels are normal. Platelets normal. Monitor CBC. * I discussed this with the patient and offered GI consultation. She tells me she does not want to repeat a colonoscopy, thus I will hold off on GI cons ultation. Given her iron deficiency anemia and minimal bleeding, she is encouraged to follow up with Dr Snow and consider repeating colonoscopy
--- NOTE | 2020-07-09 13:06 | PM.IMPN ---
Progress Note: A&P Assessment and Plan (1) CHF exacerbation: Qualifiers: Heart failure type: right-sided Qualified Code(s): I50.813 - Acute on chronic right heart failure Code(s): I50.9 - Heart failure, unspecified Status: Acute Assessment and Plan: Acute on chronic diastolic CHF with preserved ejection fraction as demonstrated on recent echocardiogram. With CAD and valvular disease, recent coronary stenting 04/2020. Management per cardiology, appreciate input. She follows with Dr Madrid who has seen her today. Discussed case with Dr Madrid his plan to continue dobutamine gtt, likely for another 24 hrs since she is responding well to it. Today she remains on IV bumex 2mg BID. Continue to monitor with daily weights, I&Os. Monitor BMP. Tracy catheter placed to record accurate I&Os. Diuresing slowly. (2) Acute renal insufficiency: Code(s): N28.9 - Disorder of kidney and ureter, unspecified Status: Acute Assessment and Plan: Improving. May be related to hypoperfusion given lower blood pressures. Appreciate nephrology recommendations. Monitor renal function and urine output especially given her need for diuresis. (3) Acute hyponatremia: Code(s): E87.1 - Hypo-osmolality and hyponatremia Status: Acute Assessment and Plan: Urine studies suggestive of pre-renal etiology, may be related to heart failure. Will monitor serum sodium with diuresis. Low fluctuating between 124-125 and I appreciate nephrology input in this setting. Further lab studies are pending. (4) COPD (chronic obstructive pulmonary disease): Qualifiers: COPD type: unspecified COPD Qualified Code(s): J44.9 - Chronic obstructive pulmonary disease, unspecified Code(s): J44.9 - Chronic obstructive pulmonary disease, unspecified Status: Chronic Assessment and Plan: Some mild shortness of breath without acute respiratory distress, likely multifactorial due to COPD, valvular disease, CHF, etc. Tolerating room air without respiratory distress. Continue singulair. Add albuterol PRN. (5) Atrial fibrillation: Code(s): I48.91 - Unspecified atrial fibrillation Status: Chronic Assessment and Plan: Rate controlled on home metoprolol. Not on systemic anticoagulation documented related to history of GI bleeding. She does remain on dual antiplatelet therapy since her recent coronary stenting. (6) Anemia: Code(s): D64.9 - Anemia, unspecified Status: Acute Assessment and Plan: She is noted to have microcytic anemia. H&H low but stable. Appears chronic based on review of recent lab work. Stool occult blood positive. She reports minimal red blood with wiping after BMs which she attributes to her known hemorrhoids. Last GI evaluation in [address] Snow shows internal hemorrhoids and extensive diverticulosis. Iron is low. Started oral iron supplementation. Hesitant to give IV due to significant swelling. B12 and Folate levels are normal. Platelets normal. Monitor CBC. I discussed this with the patient and offered GI consultation. She tells me she does not want to repeat a colonoscopy, thus I will hold off on GI consultation. Given her iron deficiency anemia and minimal bleeding, she is encouraged to follow up with Dr Snow and consider repeating colonoscopy outpatient if she desires further work up. (7) Generalized weakness: Code(s): R53.1 - Weakness Status: Acute Assessment and Plan: Suspect related to comorbidities discussed above, may be worsened with increased swelling. Notes she had been using a wheelchair at home for a least one week. Continue PT/OT.
--- NOTE | 2020-07-09 13:25 | P.PNNP_ITS ---
Progress Note: A&P Assessment and Plan (1) Hyponatremia: Code(s): E87.1 - Hypo-osmolality and hyponatremia Status: Acute Assessment and Plan: * presumably due to CHF exacerbation/fluid overload - however, her history of COPD/lung disease does make her predisposed to this * however, limited improvement probably due to limited diuresis * follow-up on SPEP, UPEP, and serum/urine osmolality * continue fluid restriction * we may have to accept thatg her sodium will nver be normal * follow trend of repeat sodium levels (2) Acute renal insufficiency: Code(s): N28.9 - Disorder of kidney and ureter, unspecified Status: Acute Assessment and Plan: * creatinine higher than baseline but stable * follow trend for now (3) CHF exacerbation: Qualifiers: Heart failure type: right-sided Qualified Code(s): I50.813 - Acute on chronic right heart failure Code(s): I50.9 - Heart failure, unspecified Status: Acute Assessment and Plan: * based on evidence to date, more right-sided than left due to valvular heart issues * low urine sodium likely more a manifestation of her cardiac disease (chronic pre-renal azotemia) rather than volume depletion * Cardiology following (4) Anemia: Code(s): D64.9 - Anemia, unspecified Status: Acute Assessment and Plan: * chronic issue * likely a manifestiona of acute illness as well * follow trend of H/H Will continue to follow. Subjective Date/time seen: 07/09/20 13:25 Kidney function better but swelling/edema remain a significant issue/problems; somewhat frustrated by the lack of progress with regard to treatment of the ed carloz/swelling despite interventions to date. Exam Narrative: Exam Narrative: General: WD/WN female in NAD Heart: normal S1 and S2; no rub Lungs: decreased at bases Abdomen: soft, nontender, nondistended, positive bowel sounds Extremities: no cyanosis or clubbing; 2 - 3+ edema Skin: warm and dry Objective Data Vital Signs Vital Signs: Vital Signs - 24 hr 07/09/20 02:00 07/09/20 04:00 07/09/20 06:00 Temperature 35.9 C L Pulse Rate 106 H 96 110 H Respiratory Rate 20 Blood Pressure 85/59 L Pulse Oximetry 97 07/09/20 08:00 07/09/20 08:13 07/09/20 09:56 Temperature 36.0 C L Pulse Rate 111 H 108 H 113 H Respiratory Rate 24 H Blood Pressure 85/61 L Pulse Oximetry 97 07/09/20 12:03 Temperature 36.1 C L Pulse Rate 104 H Respiratory Rate 22 H Blood Pressure 86/56 L Pulse Oximetry 98 Intake/Output Intake/Output: Intake & Output 07/06/20 07/07/20 07/08/20 07/09/20 23:59 23:59 23:59 23:59 Intake Total 1010 1590 930 952 Output Total 1150 900 975 400 Balance -140 690 -45 552 Meds/Results Medications: Active Medications Generic Name Dose Route Start Last Admin Trade Name Freq PRN Reason Stop Dose Admin Acetaminophen 650 mg 07/04/20 20:26 Acetaminophen 325 Mg Tablet PO QID PRN Pain Albuterol 2 puff 07/05/20 15:08 Albuterol Sulfate (*Sp) Aerosol 1 Puff INHALATION Q6HRT PRN Shortness Of Breath
--- NOTE | 2020-07-09 13:25 | PM.PNNEP ---
Progress Note: A&P Assessment and Plan (1) Hyponatremia: Code(s): E87.1 - Hypo-osmolality and hyponatremia Status: Acute Assessment and Plan: presumably due to CHF exacerbation/fluid overload - however, her history of COPD/lung disease does make her predisposed to this however, limited improvement probably due to limited diuresis follow-up on SPEP, UPEP, and serum/urine osmolality continue fluid restriction we may have to accept thatg her sodium will nver be normal follow trend of repeat sodium levels (2) Acute renal insufficiency: Code(s): N28.9 - Disorder of kidney and ureter, unspecified Status: Acute Assessment and Plan: creatinine higher than baseline but stable follow trend for now (3) CHF exacerbation: Qualifiers: Heart failure type: right-sided Qualified Code(s): I50.813 - Acute on chronic right heart failure Code(s): I50.9 - Heart failure, unspecified Status: Acute Assessment and Plan: based on evidence to date, more right-sided than left due to valvular heart issues low urine sodium likely more a manifestation of her cardiac disease (chronic pre-renal azotemia) rather than volume depletion Cardiology following (4) Anemia: Code(s): D64.9 - Anemia, unspecified Status: Acute Assessment and Plan: chronic issue likely a manifestiona of acute illness as well follow trend of H/H Will continue to follow. Subjective Date/time seen: 07/09/20 13:25 Kidney function better but swelling/edema remain a significant issue/problems; somewhat frustrated by the lack of progress with regard to treatment of the edema/swelling despite interventions to date. Exam Narrative: Exam Narrative: General: WD/WN female in NAD Heart: normal S1 and S2; no rub Lungs: decreased at bases Abdomen: soft, nontender, nondistended, positive bowel sounds Extremities: no cyanosis or clubbing; 2 - 3+ edema Skin: warm and dry Objective Data Vital Signs Vital Signs: Vital Signs - 24 hr 07/09/20 02:00 07/09/20 04:00 07/09/20 06:00 Temperature 35.9 C L Pulse Rate 106 H 96 110 H Respiratory Rate 20 Blood Pressure 85/59 L Pulse Oximetry 97 07/09/20 08:00 07/09/20 08:13 07/09/20 09:56 Temperature 36.0 C L Pulse Rate 111 H 108 H 113 H Respiratory Rate 24 H Blood Pressure 85/61 L Pulse Oximetry 97 07/09/20 12:03 Temperature 36.1 C L Pulse Rate 104 H Respiratory Rate 22 H Blood Pressure 86/56 L Pulse Oximetry 98 Intake/Output Intake/Output: Intake & Output 07/06/20 07/07/20 07/08/20 07/09/20 23:59 23:59 23:59 23:59 Intake Total 1010 1590 930 952 Output Total 1150 900 975 400 Balance -140 690 -45 552 Meds/Results Medications: Active Medications Generic Name Dose Route Start Last Admin Trade Name Freq PRN Reason Stop Dose Admin Acetaminophen 650 mg 07/04/20 20:26 Acetaminophen 325 Mg Tablet PO QID PRN Pain Albuterol 2 puff 07/05/20 15:08 Albuterol Sulfate (*Sp) Aerosol 1 Puff INHALATION Q6HRT PRN Shortness Of Breath Aspirin 81 mg 07/05/20 08:00 07/09/20 09:56 Aspirin 81 Mg Chewable Tablet PO 81 mg DAILY@0800 MARGIE Administration Atorvastatin Calcium 40 mg 07/05/20 09:00 07/09/20 09:55 Atorvastatin 40 Mg Tablet PO 40 mg DAILY MARGIE Administration Bumetanide 2 mg 07/08/20 09:00 07/09/20 09:55 Bumetanide Inj 1 Mg/4 Ml Vial IV PUSH 2 mg BID MARGIE Administration Calcium Carbonate 200 mg 07/04/20 21:00 07/09/20 09:52 Calcium Carbonate (Tums) 500 Mg (200 Mg Elemental) PO 200 mg QID MARGIE Administration Clopidogrel Bisulfate 75 mg 07/05/20 09:00 07/09/20 09:55 Clopidogrel Bisulfate 75 Mg Tablet PO 75 mg DAILY MARGIE Administration Fenofibrate 145 mg 07/05/20 09:00 07/09/20 09:53 Fenofibrate Nanocrystallized 145 Mg Tablet PO 145 mg QAM MARGIE Administration Ferrous Sulfate 324 mg 02
[2020-07-09] MEDS: LORazepam (*CRX) 0.5 MG TABLET PO (21:06)
[2020-07-09] MEDS: DOPamine 400 MG/D5W 250 ML 400 MG/250 ML BAG 9.1 MG IV CONT (21:07)
[2020-07-10] VITALS (11 sets, daily range): BP systolic 80–98; BP diastolic 49–66; PULSE 84–118; RESP 18–22; TEMP 35.8–36.5; O2SAT 95–99
[2020-07-10 04:49] LABS: Basophils Percent Auto 0.5 % (0.2-1.2); Eosinophils Absolute Auto 0.1 K/mm3 (0-0.3); Eosinophils Percent Auto 1.4 % (0-4.4); Hematocrit 28.3 % (37.0-47.0); Hemoglobin 9.1 g/dL (12.0-15.0); Immature Granulocyte Absolute 0.02 K/mm3 (0.00-0.031); Immature Granulocyte Percent A 0.3 % (0-0.5); Lymphocytes Absolute Auto 0.57 K/mm3 (0.9-3.2); Lymphocytes Percent Auto 7.5 % (18.3-44.2); Mean Corpuscular HGB Conc 32.2 g/dl (32-36); Mean Corpuscular Hemoglobin 24.7 pg (26-34); Mean Corpuscular Volume 76.7 fl (80-100); Monocytes Absolute Auto 0.8 K/mm3 (0.1-0.6); Neutrophils Percent Auto 79.3 % (45.5-73.1); Platelet Count Result 276 k/mm3 (150-375); Red Blood Count 3.69 M/mm3 (4.2-5.4); White Blood Count 7.6 K/mm3 (4.5-10.0)
[2020-07-10 04:59] LABS: Alanine Aminotransferase 142 U/L (4-35); Alkaline Phosphatase 62 U/L (38-126); Anion Gap 6 mmol/L (8-16); Aspartate Amino Transferase 481 U/L (14-36); Bilirubin,Total 2.7 mg/dL (0.2-1.3); Blood Urea Nitrogen 22 mg/dL (7-17); Calcium 8.1 mg/dL (8.4-10.2); Carbon Dioxide 29 mmol/L (22-30); Chloride 88 mmol/L (98-107); Estimated CRCL calculation 40 ml/min; Estimated Glomerular Filt Rate 53; Glucose 105 mg/dL (65-105); Magnesium 1.7 mg/dL (1.6-2.3); Potassium 3.5 mmol/L (3.4-5.0); Sodium 123 mmol/L (137-145)
[2020-07-10] MEDS: BUMETANIDE INJ 1 MG/4 ML VIAL 2 MG IV PUSH (09:13)
[2020-07-10] MEDS: MONTELUKAST SODIUM 5 MG TABLET PO (09:13)
[2020-07-10] MEDS: FENOFIBRATE NANOCRYSTALLIZED 145 MG TABLET PO (09:14)
[2020-07-10] MEDS: ATORVASTATIN 40 MG TABLET PO (09:14)
[2020-07-10] MEDS: CLOPIDOGREL BISULFATE 75 MG TABLET PO (09:14)
[2020-07-10] MEDS: CALCIUM CARBONATE (TUMS) 500 MG (200 MG ELEMENTAL) PO (09:14)
[2020-07-10] MEDS: OPTI-GEN TAB 1 TABLET PO (09:14)
[2020-07-10] MEDS: ASPIRIN 81 MG CHEWABLE TABLET PO (09:15)
[2020-07-10] MEDS: LORATADINE 10 MG TABLET PO (09:15)
[2020-07-10] MEDS: PANTOPRAZOLE 40 MG TABLET PO (09:15)
[2020-07-10] MEDS: MAGNESIUM OXIDE 200 MG TABLET PO (09:15)
[2020-07-10] MEDS: FERROUS SULFATE 324 MG TABLET PO (09:16)
[2020-07-10] MEDS: guaiFENesin/DEXTROMETHORPHAN 10 ML UDC 5 ML PO (09:17)
[2020-07-10] MEDS: METOPROLOL SUCCINATE EXT REL 50 MG TABCR PO (10:18)
[2020-07-10] MEDS: POTASSIUM CHLORIDE 20 MEQ TABLET PO (10:19)
--- NOTE | 2020-07-10 11:21 | PM.PNCARD ---
Progress Note: A&P Additional Plan 85-year-old lady with coronary and valvular heart disease admitted with a decompensation of congestive heart failure more right-sided findings then left-sided findings which is probably because of severe tricuspid valve insufficiency noted on echocardiogram. She is currently probably optimized from hospital treatment she is essentially euvolemic and otherwise not unstable. Going to stop the intravenous dopamine today and transition her back to oral Bumex. Discharged home at this time is reasonable as she is otherwise not unstable and she understands that her valvular heart issues are going to be chronic with high risk of recurrences of this congestive heart failure since she is not interested in aggressive/surgical treatment of her valve disease. Alfred Madrid MD [facility] Subjective Date/time seen: Date of service: 07/10/20 11:21 Interval history: 85-year-old lady with: Coronary and valvular heart disease as well as chronic atrial fibrillation. Patient admitted with symptomatic volume overload far more right-sided failure than left-sided failure. Has mild chronic kidney disease as well. Patient today feels well and would like to be discharged. She is no longer short of breath and volume overload has largely been resolved. Long discussion with the patient about marginal blood pressure and safety outside of the hospital regarding fall risk. I am going to discontinue her intravenous dopamine today and switch her back to oral Bumex at 2 mg daily. Patient is questioning as to whether home health services have been arranged for her at discharge and I do not have the answer to that question as I dictate this note. Exam Const: General: comfortable and no acute distress HENMT: Mouth: Yes dry mucous membranes Eyes: Sclera: sclerae normal Pupils: Equal, round and reactive pupils present Neck: Neck: supple and no JVD Resp: Other: Breath sounds somewhat diminished at the bases no rales no rhonchi no wheezing Cardio: Rhythm: abnormal rhythm irregularly irregular GI: GI Palp: Yes Soft to palpation Auscultation: normal bowel sounds Skin: General skin exam: normal color Neuro: Cognition (Neuro): normal cognition Extrem: Other: Minimal pretibial edema at this time Objective Data Vital Signs Vital Signs: Vital Signs - 24 hr 07/09/20 12:00 07/09/20 12:03 07/09/20 14:00 Temperature 36.1 C L Pulse Rate 94 104 H 112 H Respiratory Rate 22 H Blood Pressure 86/56 L Pulse Oximetry 98 07/09/20 16:00 07/09/20 16:36 07/09/20 18:00 Temperature 35.7 C L Pulse Rate 95 80 109 H Respiratory Rate 22 H Blood Pressure 89/48 L Pulse Oximetry 99 07/09/20 19:58 07/09/20 20:00 07/09/20 22:00 Temperature 36.3 C L Pulse Rate 92 89 114 H Respiratory Rate 18 Blood Pressure 92/55 L Pulse Oximetry 97 97 07/10/20 00:00 07/10/20 02:00 07/10/20 04:00 Temperature 36.2 C L 36.3 C L Pulse Rate 105 H 98 104 H Respiratory Rate 18 20 Blood Pressure 80/60 L 93/49 L Pulse Oximetry 95 96 07/10/20 06:00 07/10/20 08:00 07/10/20 08:18 Temperature 36.5 C Pulse Rate 113 H 115 H 105 H Respiratory Rate 22 H Blood Pressure 88/52 L Pulse Oximetry 99 07/10/20 09:08 07/10/20 10:00 07/10/20 10:18 Temperature Pulse Rate 92 84 Respiratory Rate Blood Pressure 98/66 L Pulse Oximetry Intake/Output Intake/Output: Intake & Output 07/07/20 07/08/20 07/09/20 07/10/20 23:59 23:59 23:59 23:59 Intake Total 1065 573 3637 640 Output Total 900 975 850 451 Balance 690 45 680 189 Meds/Results Medications: Active Medications Generic Name Dose Route Start Last Admin Trade Name Freq PRN Reason Stop Dose Admin Acetaminophen 650 mg 07/04/20 20:26 Acetaminophen 325 Mg Tablet PO QID PRN Pain Albuterol 2 puff 07/05/20 15:08 Albuterol Sulfate (*Sp) Aerosol 1 Puff INHALATION Q6HRT PRN Shortness Of Breath Aspirin
--- NOTE | 2020-07-10 12:56 | PM.DS ---
DS: Admitting Diagnosis Admitting Diagnosis Admitting Diagnosis: Acute on chronic CHF. DS: Discharge Diagnosis Discharge Diagnosis (1) CHF exacerbation: Qualifiers: Heart failure type: right-sided Qualified Code(s): I50.813 - Acute on chronic right heart failure Code(s): I50.9 - Heart failure, unspecified Status: Acute Assessment and Plan: Date of Admission 07/04/20 Date of Discharge/DOS 07/10/20 Ms. Palacios is an 85yo F with several comorbidities including CHF, severe tricuspid valve insufficiency, coronary artery disease with recent coronary stenting April 2020 on dual anti-platelet therapy, COPD, atrial fibrillation, and chronic anemia who presented to the ED for evaluation of worsening lower extremity weakness. She is an established patient of Dr. Madrid. It is noted that her significant valvular disease has been discussed extensively between Cardiology and patient/family and patient has opted to not pursue further surgical intervention in the past. It is likely this continues to contribute to her overall right heart failure and significant edema. She presents with pitting edema from feet up to her abdomen bilaterally. She has been taking oral Bumex at home. Diuresis was attempted with increased doses of her Bumex, initially with 1 mg IV BID, then up to 2 mg IV BID. Diuresis was somewhat limited by her hypotension with blood pressures persistently around 80s over 60s. She was transferred to IMU and dobutamine drip was initiated by Cardiology. She tolerated this well and diuresed a bit - is noted that her weight was around 8 lb lower than her admission weight. Her swelling was slightly improved day of discharge. She is noted to have chronic anemia. Iron levels were low and oral iron supplementation was started. She declined GI consultation because she does not want another colonoscopy. AST, ALT were elevated and trending up. It suspected this may be related to hepatic congestion from fluid overload. She denied abdominal pain. Hepatitis panel negative. If patient is agreeable, she may benefit from outpatient abdominal ultrasound for further evaluation. Repeat labs in 1 week to trend LFTs. She was evaluated by Nephrology, Dr. Thurston, due to persistent hyponatremia. Is suspected that this is related to heart failure and fluid overload and remained low but stable. She had creatinine a bit elevated above baseline which did improve prior to discharge. She can follow-up with Dr. Thurston if she or her PCP desires however her renal function appears stable at present. She describes generalized weakness and has been working with PT/OT here, home health for continued therapy has been arranged. She was discharged with an increased dose of her oral Bumex with instructions to follow-up with Dr. Madrid and PCP. He did have a long discussion with the patient and her daughter, Justine, at the bedside explaining this may continue to be an ongoing issue for her moving forward due to her significant valvular disease and heart failure, and that she may be in a position for recurring hospitalizations. The patient does not seem to want aggressive therapies and I have encouraged the patient and her daughter to have discussions regarding further goals of care beyond this hospitalization. Acute on chronic diastolic CHF with preserved ejection fraction as demonstrated on recent echocardiogram. With CAD and valvular disease, recent coronary stenting 04/2020. Management per cardiology. She follows with Dr Madrid who has seen her today and recommends she is will for discharge from Cardiology standpoint. She was diuresed with increased doses of her Bumex as outlined above. She was treated with dobutamine drip that is discontinued on day of discharge. Tracy catheter placed to record accurate I&Os, removed prior to discharge and she was able to void prior to discharge
[2020-07-12 06:17] LABS: Osmolality, Urine 306 mOsm/kg (50-1200)
[2020-07-13 04:05] LABS: Alpha 1 Globulin 0.5 g/dL (0.2-0.3); Alpha 2 Globulin 0.5 g/dL (0.5-0.9); Beta 1 Globulin 0.5 g/dL (0.4-0.6); Gamma Globulin 0.9 g/dL (0.8-1.7); Protein, Total 5.6 g/dL (6.1-8.1)
[2020-07-13 16:55] LABS: Chloride Rand Ur <20 mmol/L (32-290); Creatinine Random Urine 94 mg/dL (20-275)
[2020-07-13 21:35] LABS: Creatinine, Random Urine 95 mg/dL (20-275); Total Protein/Creatinine Ratio 674 mg/g creat (21-161)
== END 2020-07-10 13:39 | disposition home health service (06) | DRG 291 ==
LOC: ANHED 16:24 → ANH3MEDSUR 17:15 → ANHIMU 07-10 12:00 → ANH3MEDSUR 07-14 13:41 → ANHIMU 07-14 13:41
PROVIDERS: Internal Medicine; Internal Medicine Cardiovascular Disease; Internal Medicine Nephrology; Physician Assistant; Admitting Provider Internal Medicine; Emergency Provider Emergency Medicine; PCP Family Medicine; Visit Provider Family Medicine
DX: I13.0 Hypertensive heart and chronic kidney disease with heart failure and stage 1 through stage 4 chronic kidney disease, or unspecified chronic kidney disease (principal); I50.33 Acute on chronic diastolic (congestive) heart failure; E87.1 Hypo-osmolality and hyponatremia; I50.813 Acute on chronic right heart failure; N18.30 Chronic kidney disease, stage 3 unspecified; I25.10 Atherosclerotic heart disease of native coronary artery without angina pectoris; J44.9 Chronic obstructive pulmonary disease, unspecified; I08.3 Combined rheumatic disorders of mitral, aortic and tricuspid valves; I27.20 Pulmonary hypertension, unspecified; I48.91 Unspecified atrial fibrillation; D64.9 Anemia, unspecified; E78.5 Hyperlipidemia, unspecified; R53.1 Weakness; K57.90 Diverticulosis of intestine, part unspecified, without perforation or abscess without bleeding; K64.8 Other hemorrhoids; R74.01 Elevation of levels of liver transaminase levels; Z79.82 Long term (current) use of aspirin; Z79.899 Other long term (current) drug therapy; Z87.891 Personal history of nicotine dependence; Z95.2 Presence of prosthetic heart valve; Z95.5 Presence of coronary angioplasty implant and graft
CPT/HCPCS: 36415; 71045; 80048; 80053; 80074; 81001; 81050; 82274; 82436; 82533; 82570; 82607; 82728; 82746; 83540; 83550; 83735; 83880; 83930; 83935; 84100; 84155; 84156; 84165; 84166; 84300; 84439; 84443; 84466; 84480; 84484; 85025; 85046; 85610; 85730; 93005; 94762; 97110; 97116; 97161; 97165; 97535; 99285; A9270; G0378; J1265

== ENCOUNTER 2020-07-12 16:07 | Outpatient (NON) | payer MEDICARE, SELFPAY ==
[2020-07-12 16:31] LABS: Hemoglobin 9.1 g/dL (12.0-15.0); Mean Corpuscular HGB Conc 33.7 g/dl (32-36); Mean Corpuscular Hemoglobin 24.9 pg (26-34); Mean Corpuscular Volume 73.8 fl (80-100); Mean Platelet Volume 11.2 fl (7.4-10.4); Platelet Count Result 261 k/mm3 (150-375); Red Blood Count 3.66 M/mm3 (4.2-5.4); Red Cell Distribution Width 20.5 % (11.5-14.5); White Blood Count 8.2 K/mm3 (4.5-10.0)
== END 2020-07-12 16:08 ==
PROVIDERS: PCP Family Medicine; Visit Provider Family Medicine
DX: I50.813 Acute on chronic right heart failure (principal); I50.33 Acute on chronic diastolic (congestive) heart failure; I25.10 Atherosclerotic heart disease of native coronary artery without angina pectoris; I13.0 Hypertensive heart and chronic kidney disease with heart failure and stage 1 through stage 4 chronic kidney disease, or unspecified chronic kidney disease
CPT/HCPCS: 85027

== ENCOUNTER 2020-07-22 11:01 | Outpatient (NON) | payer MEDICARE, SELFPAY ==
[2020-07-22 11:40] LABS: Alanine Aminotransferase 86 U/L (4-35); Alkaline Phosphatase 74 U/L (38-126); Anion Gap 6 mmol/L (8-16); Aspartate Amino Transferase 174 U/L (14-36); Bilirubin,Total 4.1 mg/dL (0.2-1.3); Blood Urea Nitrogen 24 mg/dL (7-17); Carbon Dioxide 29 mmol/L (22-30); Chloride 88 mmol/L (98-107); Estimated Glomerular Filt Rate 36; Glucose 94 mg/dL (65-105); Sodium 123 mmol/L (137-145)
[2020-07-22 11:49] LABS: NT Pro B Type Natriuretic Pept 9000 PG/ML (5-100)
[2020-07-22 13:16] LABS: Free T4 Free Thyroxine Reflex 1.14 ng/dL (0.78-2.19)
[2020-07-22 13:58] LABS: Total Triiodothyronine (T3) 0.65 NG/ML (0.97-1.69)
== END 2020-07-22 11:02 ==
PROVIDERS: PCP Family Medicine; Visit Provider Family Medicine
DX: I48.91 Unspecified atrial fibrillation (principal); I50.813 Acute on chronic right heart failure; I25.10 Atherosclerotic heart disease of native coronary artery without angina pectoris; I10 Essential (primary) hypertension; R74.01 Elevation of levels of liver transaminase levels
CPT/HCPCS: 80053; 83880; 84439; 84443; 84480; 85025

== ENCOUNTER 2020-07-22 14:48 | Observation (INO) | payer MEDICARE, SELFPAY ==
[2020-07-22] VITALS (10 sets, daily range): BP systolic 88–113; BP diastolic 60–79; PULSE 89–118; RESP 16–20; TEMP 35.9–36.7; O2SAT 96–100; BMI 37.4
--- NOTE | ~2020-07-22 | XR_ITS ---
XR chest 2V DATE: 07/22/2020 15:54 INDICATION: Increasing shortness of breath and edema of the leg for 3 days. History of congestive hea rt failure, hypertension, atrial fibrillation TECHNIQUE: AP and lateral views COMPARISON: portable AP chest 05/15/2022 view chest FINDINGS: Status post sternotomy and probable aortic valve replacement. Prominent mitral annulus calcification. Cardiomegaly. Aortic calcification and tortuosity. No hilar or mediastinal enlargement is evident. There is patchy right lower lung infiltrate and mild right pleural effusion. Small left pleural effusion. Pulmonary vascular redistribution may indicate mild pulmonary venous hyp ertension. Diffuse osteopenia. Probable chronic bone infarct or enchondroma at proximal right humeral shaft and neck. IMPRESSION: Cardiomegaly, mild congestive heart failure including mild bilateral pleural effusions Patchy new right lower lung infiltrate, involving basilar right lower lobe. Differential diagnosis in cludes pneumonia, aspiration Reviewed, dictated and finalized at location [facility]. [employer] IMPRESSION: Cardiomegaly, mild congestive heart failure including mild bilatera l pleural effusions Patchy new right lower lung infiltrate, involving basilar right lower lobe. Dif ferential diagnosis includes pneumonia, aspiration
--- NOTE | 2020-07-22 14:56 | ECG_ITS ---
Measurements Intervals [place] Rate: 109 P: IA: 0 QRS: -42 QRSD: 173 T: 0 QT: 405 QTc: 546 Interpretive Statements ATRIAL FIBRILLATION WITH RAPID VENTRICULAR RESPONSE VENTRICULAR PREMATURE COMPLEX LEFT AXIS DEVIATION RIGHT BUNDLE BRANCH BLOCK ABNORMAL ECG Electronically Signed On 07-22-2020 21:14:55 RELIGIOUS EDUCATION DIRECTOR by Rajinder Dutton D.O.
[2020-07-22 15:08] LABS: Basophils Percent Auto 0.5 % (0.2-1.2); Eosinophils Absolute Auto 0.1 K/mm3 (0-0.3); Eosinophils Percent Auto 1.3 % (0-4.4); Hematocrit 26.3 % (37.0-47.0); Hemoglobin 8.4 g/dL (12.0-15.0); Immature Granulocyte Absolute 0.06 K/mm3 (0.00-0.031); Immature Granulocyte Percent A 0.7 % (0-0.5); Lymphocytes Absolute Auto 0.69 K/mm3 (0.9-3.2); Lymphocytes Percent Auto 8.3 % (18.3-44.2); Mean Corpuscular HGB Conc 31.9 g/dl (32-36); Mean Corpuscular Hemoglobin 24.9 pg (26-34); Mean Platelet Volume 11.1 fl (7.4-10.4); Monocytes Absolute Auto 0.8 K/mm3 (0.1-0.6); Monocytes Percent Auto 9.1 % (2.6-8.5); Neutrophils Absolute Auto 6.7 K/mm3 (1.3-6.7); Neutrophils Percent Auto 80.1 % (45.5-73.1); Platelet Count Result 261 k/mm3 (150-375); Red Blood Count 3.37 M/mm3 (4.2-5.4); Red Cell Distribution Width 23.6 % (11.5-14.5); White Blood Count 8.4 K/mm3 (4.5-10.0)
[2020-07-22 15:18] LABS: INR 2.3; Prothrombin Time 25.5 Seconds (11.1-14.7)
[2020-07-22 15:19] LABS: Partial Thromboplastin Time 35.3 SECONDS (22.3-36.8)
[2020-07-22 15:21] LABS: Anion Gap 9 mmol/L (8-16); Blood Urea Nitrogen 24 mg/dL (7-17); Calcium 8.2 mg/dL (8.4-10.2); Carbon Dioxide 28 mmol/L (22-30); Chloride 88 mmol/L (98-107); Estimated CRCL calculation 30 ml/min; Estimated Glomerular Filt Rate 36; Glucose 129 mg/dL (65-105); Potassium 3.9 mmol/L (3.4-5.0); Sodium 125 mmol/L (137-145)
[2020-07-22 15:33] LABS: NT Pro B Type Natriuretic Pept 8170 PG/ML (5-100); Troponin I < 0.012 ng/mL (0.000-0.034)
--- NOTE | 2020-07-22 19:08 | PC.NURSE ---
assume care of pt at this time, received report from piotr
--- NOTE | 2020-07-22 19:55 | ED.SOB ---
HPI - SOB/Dyspnea General Chief Complaint: Shortness of Breath/Dyspnea Stated Complaint: abnormal labs Time Seen by Provider: 07/22/20 18:17 History of Present Illness HPI Narrative: Patient is an 85-year-old female with history of aortic valve stenosis after replacement as well as severe mitral insufficiency who presents to the ER with shortness of breath. Reports she has been having shortness of breath chronically was increased. She had outpatient lab work done today that showed a BNP of 9000. Patient has been compliant with her home medications. She continues to have pitting edema up to her mid abdomen. She endorses orthopnea. She also reports she had emesis earlier in the week when taking some iron supplementation. She denies choking on her vomit or experiencing aspiration type symptoms. She denies fevers or chills or sweats. Reports chronic cough that has not particularly worsened. Related Data Home Medications Medication Instructions Recorded Confirmed acetaminophen [Tylenol] 325 mg PO QID PRN 07/04/20 07/21/20 aspirin 81 mg PO DAILY 07/04/20 07/21/20 atorvastatin 40 mg PO DAILY 07/04/20 07/21/20 calcium carbonate [Tums] 200 mg PO QID 07/04/20 07/21/20 clopidogrel [Plavix] 75 mg PO DAILY 07/04/20 07/21/20 fenofibrate 145 mg PO DAILY 07/04/20 07/21/20 loratadine [Claritin] 10 mg PO DAILY 07/04/20 07/21/20 metoprolol succinate 50 mg PO DAILY 07/04/20 07/21/20 uhbjuxfudlqh-setlmcph-sjglgl 1 tablet PO DAILY 07/04/20 07/21/20 nitroglycerin 0.4 mg SUBLINGUAL Q5-15M PRN 07/04/20 07/21/20 montelukast 5 mg chewable tablet 10 mg PO DAILY tablet 07/21/20 07/21/20 Allergies Allergy/AdvReac Type Severity Reaction Status Date / Time epinephrine Allergy Unknown Rapid Verified 07/22/20 23:13 Heart Rate,Palpitations erythromycin base Allergy Unknown Abdominal Verified 07/22/20 23:13 pain Iodinated Contrast Media Allergy Unknown Rash Verified 07/22/20 23:13 promethazine Allergy Unknown Hallucinati Verified 07/22/20 23:13 on,Hallucin ating lactase [From Dairy Aid] Allergy Cough Verified 07/22/20 23:13 oats Allergy Unknown Verified 07/22/20 23:13 iodine AdvReac Unknown Flushing Verified 07/22/20 23:13 Review of Systems Review of Systems: All systems reviewed & are unremarkable except as noted in HPI and below Constitutional: Constitutional: Denies chills, Reports fatigue, Denies fever(s) and Reports weakness ENT: Denies nasal congestion and Denies sore throat Cardiovascular: Cardiovascular: Denies chest pain, Denies rapid heart rate and Denies radiating jaw, neck or arm pain Comments: Orthopnea Respiratory: Respiratory: Denies cough, Reports dyspnea and Denies wheezing Gastrointestinal: Gastrointestinal: Denies abdominal pain, Denies nausea and Denies vomiting PMF Past Medical History Medical History Allergy to environmental factors Anxiety Asthma Atrial fibrillation patient refuses anticoagulation Chronic kidney disease, stage 3 Chronic low back pain without sciatica Coronary artery disease Diastolic dysfunction echocardiogram April 2020: Hyperdynamic left ventricle with EF of greater than 70%, moderate to severe aortic valve stenosis with valve area of 1 in peak velocity of 314, severe tricuspid valve regurgitation, mild to moderate mitral valve regurgitation, atrial fibrillation Dyslipidemia, goal LDL below 100 Essential (primary) hypertension Hiatal hernia History of diverticulitis History of vertigo Mild persistent asthma without complication Moderate mitral valve regurgitation Moderate to severe pulmonary hypertension Osteoarthritis Rosacea Severe aortic valve stenosis of bioprosthetic aortic valve that was placed in 2012 Severe tricuspid regurgitation Surgical History Surgical History S/P AVR (aortic valve replacement) (~2012) Now with severe aortic stenosis of bioprosth
[2020-07-22] MEDS: BUMETANIDE INJ 1 MG/4 ML VIAL IV PUSH (20:18)
[2020-07-22] MEDS: DIGOXIN INJ 250 MCG/ML 2 ML AMP (*BKC) IV PUSH (21:21)
--- NOTE | 2020-07-22 21:31 | PM.IMHP ---
H&P: HPI History of Present Illness Date/Time: 07/22/20 21:31 Chief Complaint: Abnormal labs, sent to ER by PCP. Narrative: This is an 85 year old female with a past medical history of moderate to severe aortic valve stenosis, severe tricuspid regurgitation, coronary artery disease, COPD and pulmonary hypertension who presented to the hospital [facility] after her PCP found her BNP to be elevated at 9000. She denies any worsening acute symptoms and states that she chronically feels very tired, short of breath, and has chronic lower extremity swelling. She is known to have have chronic orthopnea. She reports having rectal bleeding for a few days after she was last discharged but has no longer had any rectal bleeding or dark black stools. During her last hospitalizations she underwent cardiac catheterization and had a coronary stent placed. Since then she has not had any recurrence of chest pain. The patient is known to have a chronic cough that has not changed. Tonight she denies any fevers, chills, sore throat, chest pain, palpitations, abdominal pain, dysuria, hematuria, diarrhea, or focal neurological symptoms. She was evaluated in the ER [facility] and found to be in rapid atrial fibrillation. CXR demonstrated pulmonary edema. The patient was treated with bumex IV as well as digoxin IV for rate control of her atrial fibrillation. Cardiology, Dr. Katz has been consutled by ER provider. No other complaints. Review of Systems Review of Systems: All systems reviewed & are unremarkable except as noted in HPI and below PMFSH Past Medical History Medical History Allergy to environmental factors Anxiety Asthma Atrial fibrillation patient refuses anticoagulation Chronic kidney disease, stage 3 Chronic low back pain without sciatica Coronary artery disease Diastolic dysfunction echocardiogram April 2020: Hyperdynamic left ventricle with EF of greater than 70%, moderate to severe aortic valve stenosis with valve area of 1 in peak velocity of 314, severe tricuspid valve regurgitation, mild to moderate mitral valve regurgitation, atrial fibrillation Dyslipidemia, goal LDL below 100 Essential (primary) hypertension Hiatal hernia History of diverticulitis History of vertigo Mild persistent asthma without complication Moderate mitral valve regurgitation Moderate to severe pulmonary hypertension Osteoarthritis Rosacea Severe aortic valve stenosis of bioprosthetic aortic valve that was placed in 2012 Severe tricuspid regurgitation Surgical History Surgical History S/P AVR (aortic valve replacement) (~2012) Now with severe aortic stenosis of bioprosthetic valve noted on echocardiogram April 2020 will valve area of 1 cm peak velocity 312 S/P coronary artery stent placement (~2003) stent to the RCA in 2003. Recurrence of dyspnea on exertion with cardiac catheterization 04/2020 with repeat stenting of RCA Family History Family History Mother Lung cancer Chronic obstructive pulmonary disease Father Heart disease Grandparent Asthma Cerebrovascular accident Son Diabetes mellitus Stented coronary artery Social History Social History Smoking packs per day: 2 Smoking cigarettes per day: 40.0 Years smoked: 20 Smoking pack-years: 40.00 Smoking status: Former smoker Tobacco type: cigarettes Second hand tobacco smoke exposure: No Smoking end date: 05/27/79 Additional smoking assessment comments: Pt quit smoking 40 years ago Alcohol intake: current Drinks per week: 7 Substance use: never Substance use type: does not use Other substance usage details: 1 glass wine/night Additional living arrangements comments: But daughter lives in the upstairs apartment. Gender identity (if
--- NOTE | 2020-07-22 22:30 | PC.NURSE ---
This patient, Jacquelyn Palacios, was admitted to IMU Room 202-. Patient/family oriented to hospital policies and general routines including ID bracelet, bed and alarms, visiting hours, pain management, procedures, bathroom and other care routines, personal items, smoking policy, room service/diet, and visiting hours. Patient/Family are encouraged to report perceived risks to care and to ask questions if they do not understand what they are told or what they should do.
[2020-07-23] VITALS (10 sets, daily range): BP systolic 90–102; BP diastolic 54–62; PULSE 93–112; RESP 18–20; TEMP 36.1–36.3; O2SAT 92–100
--- NOTE | 2020-07-23 | ECHOL_ITS ---
Patient Info Name: Jacquelyn Palacios Age: 85 years : 1935 Gender: Female Ht: 62 in Wt: 209 lbs BSA: 2.08 m2 HR: 103 bpm BP: 90 / 66 mmHg Heart Rhythm: Atrial Fibrillation Technical Quality: Good Exam Date: 07/23/2020 10:40 AM Exam Location: [facility] Exam Room: Patient Status: Outpatient Admit Date: 07/22/2020 Staff Ordering Physician: Tyesha Kenny PA-C Paid Search Specialist: Thea Lr RCS Attending Provider: Glen Salamanca MD Exam Type: CA echo limited Study Info Indications - AFIB RVR CHF S/P AVR Complete two-dimensional, color flow and Doppler transthoracic echocardiogram is performed. Summary 1. Complete two-dimensional, color flow and Doppler transthoracic echocardiogram is performed. 2. Left ventricular systolic function is hyperdynamic, estimated at >70%. 3. There is mildly increased left ventricular wall thickness. 4. Right atrial chamber dimension is severely enlarged. 5. Left atrial chamber dimension is severely enlarged. 6. The bioprosthetic aortic valve is not well visualized. 7. There is severe not well visualized prosthetic aortic valve stenosis with a peak velocity of 314 cm/s, mean gradient of 27 mmHg, and aortic valve area of 0.9 cm2. 8. There is trace regurgitation of the bioprosthetic aortic valve. 9. There is mild to moderate mitral valve stenosis. 10. There is mild mitral valve regurgitation. 11. The mitral valve annulus is severely calcified. 12. There is severe tricuspid valve regurgitation. 13. Mild pulmonary hypertension, estimated pulmonary arterial systolic pressure is 43 mmHg. 14. Dilated inferior vena cava with <50% collapse upon inspiration consistent with elevated right atrial pressure, 10 mmHg. Left Ventricle Left ventricular chamber dimension is normal. Left ventricular systolic function is hyperdynamic, estimated at >70%. There is mildly increased left ventricular wall thickness. Left ventricular septal wall motion is abnormal with septal motion related to bundle branch block. The left ventricular diastolic function is abnormal. Right Ventricle Right ventricular chamber dimension is normal. Right ventricular systolic function is normal. Left Atria Left atrial chamber dimension is severely enlarged. Right Atria Right atrial chamber dimension is severely enlarged. Aortic Valve The bioprosthetic aortic valve is not well visualized. There is severe not well visualized prosthetic aortic valve stenosis with a peak velocity of 314 cm/s, mean gradient of 27 mmHg, and aortic valve area of 0.9 cm2. There is trace regurgitation of the bioprosthetic aortic valve. Pulmonic Valve The pulmonic valve is normal. There is trace pulmonic regurgitation. Mitral Valve The mitral valve has thickened leaflets and calcified leaflets. There is mild to moderate mitral valve stenosis. There is mild mitral valve regurgitation. The mitral valve annulus is severely calcified. Tricuspid Valve The tricuspid valve leaflets are normal. Mild pulmonary hypertension, estimated pulmonary arterial systolic pressure is 43 mmHg. There is severe tricuspid valve regurgitation. Pericardium/Pleural The pericardium appears normal. There is no pericardial effusion. Inferior Vena Cava Dilated inferior vena cava with <50% collapse upon inspiration consistent with elevated right atrial pressure, 10 mmHg. Aorta The aortic root size at the sinus of Valsalva is normal. There is moderate aortic atherosclerosis. L
[2020-07-23] MEDS: LEVOTHYROXINE SODIUM 100 MCG TABLET PO (06:01)
[2020-07-23] MEDS: BUMETANIDE INJ 1 MG/4 ML VIAL IV PUSH (09:06)
[2020-07-23] MEDS: MONTELUKAST SODIUM 10 MG TABLET PO (09:07)
[2020-07-23] MEDS: ATORVASTATIN 40 MG TABLET PO (09:07)
[2020-07-23] MEDS: CLOPIDOGREL BISULFATE 75 MG TABLET PO (09:07)
[2020-07-23] MEDS: FENOFIBRATE NANOCRYSTALLIZED 145 MG TABLET PO (09:07)
[2020-07-23] MEDS: FERROUS SULFATE 324 MG TABLET PO (09:08)
[2020-07-23] MEDS: OPTI-GEN TAB 1 TABLET PO (09:08)
[2020-07-23] MEDS: LORATADINE 10 MG TABLET PO (09:08)
[2020-07-23] MEDS: PANTOPRAZOLE 40 MG TABLET PO (09:08)
[2020-07-23] MEDS: ASPIRIN 81 MG CHEWABLE TABLET PO (09:13)
[2020-07-23] MEDS: METOPROLOL SUCCINATE EXT REL 50 MG TABCR PO (09:24)
[2020-07-23] MEDS: BENZOCAINE 20% DENTAL GEL 9 GM TUBE 1 APPLIC BY MOUTH (09:25)
--- NOTE | 2020-07-23 10:22 | PM.IMPN ---
Progress Note: A&P Assessment and Plan (1) Acute on chronic diastolic (congestive) heart failure: Code(s): I50.33 - Acute on chronic diastolic (congestive) heart failure Status: Acute Assessment and Plan: Patient sent in by PCP due to elevated BNP on outpatient labs. Currently she is maintained on IV bumex. Cardiology was consulted by ER provider. Two weeks ago she was discharged on increased dose of her Bumex at 2mg PO daily per Dr Madrid's recommendations. See HPI - Patient and daughter, Justine, express wishes for hospice meeting. Care coordination aware. (2) Generalized weakness: Code(s): R53.1 - Weakness Status: Acute Assessment and Plan: Secondary to debility from chronic illnesses. She had been doing PT/OT with home health. (3) Atrial fibrillation with rapid ventricular response: Code(s): I48.91 - Unspecified atrial fibrillation Status: Acute Assessment and Plan: She was given a dose of digoxin in the ED, HRs documented as high as 110s. Rates remain 90s to low 100s this morning. For now will continue her home metoprolol which she seems to be tolerating well. Cardiology consulted. Not on anticoagulation due to history of GI bleeding. (4) Acute hyponatremia: Code(s): E87.1 - Hypo-osmolality and hyponatremia Status: Chronic Assessment and Plan: Chronic hyponatremia likely secondary to fluid overload and heart failure. Stable since last hospital discharge. Monitor serum sodium. Continue fluid restricted diet. (5) Acute renal insufficiency: Code(s): N28.9 - Disorder of kidney and ureter, unspecified Status: Acute Assessment and Plan: Acute on chronic, Cr a little higher than discharge 2 weeks ago which may be near her new baseline. Likely secondary to acute heart failure and poor oral intake. Monitor renal function, avoid nephrotoxic agents, renally dose medications. (6) Anemia: Qualifiers: Anemia type: unspecified type Qualified Code(s): D64.9 - Anemia, unspecified Code(s): D64.9 - Anemia, unspecified Status: Chronic Assessment and Plan: Suspect anemia of chronic disease with component of iron deficiency. Started on oral iron supplementation last hospitalization which she notes is making her nauseous. No signs of acute blood loss. Monitor H/H. (7) COPD (chronic obstructive pulmonary disease): Qualifiers: COPD type: unspecified COPD Qualified Code(s): J44.9 - Chronic obstructive pulmonary disease, unspecified Code(s): J44.9 - Chronic obstructive pulmonary disease, unspecified Status: Chronic Assessment and Plan: No acute respiratory distress today. Continue home montelukast and PRN bronchodilators. (8) Essential (primary) hypertension: Code(s): I10 - Essential (primary) hypertension Status: Chronic Assessment and Plan: History of HTN however BPs remain labile similar to last hospitalization. Stable, last . Asymptomatic. Continue her home beta blockade and monitor BP. (9) Dyslipidemia, goal LDL below 100: Code(s): E78.5 - Hyperlipidemia, unspecified Status: Chronic Assessment and Plan: Maintained on home statin therapy. (10) S/P AVR (aortic valve replacement): Onset Date: ~2012 Code(s): Z95.2 - Presence of prosthetic heart valve Status: Chronic Assessment and Plan: Continue Cardiology recommendations. (11) Coronary artery disease: Qualifiers:
--- NOTE | 2020-07-23 11:53 | PM.CNCAR ---
Assessment and Plan Assessment and plan (1) Acute on chronic heart failure with preserved ejection fraction: Code(s): I50.33 - Acute on chronic diastolic (congestive) heart failure Status: Acute Assessment and Plan: Elevated BNP as outpatient but patient denied new changes in her sxs or significant weight gain, worsening edema or exertional dyspnea. She does admit to ongoing significant shortness of breath, abdominal fullness and lower extremity edema. Her cough is chronic and longstanding. Continue to diurese with accurate input, daily weight, less than 2000 mg sodium intake daily. Monitor renal function and electrolytes closely. Keep potassium around 4 and magnesium close to 2 possible. Discussed at length repetitive pattern of CHF exacerbations with frequent admissions to the hospital. However, all patient notes she feels better holding medications it is not possible to determine which ones are primarily responsible for feeling more fatigued as several can cause similar side effects. Nonetheless, noncompliance with medications will obviously predispose her to worsening CHF and destabilization particular with her atrial fibrillation. her prior hospitalization indicates favorable response to low-dose dopamine, however, given her AFib with RVR on that sure how which she will do in this regard. Nonetheless, given that it has only been 2 weeks since her last admission for similar issues requiring some inotropics therapy this would portend a poor prognosis as circumstances stand. Will observe response with current therapy with recommendations to follow. As patient is indicates she is not willing to consider further invasive or surgical procedures palliative measures and comfort care is reasonable. She states he is thinking about this but has not made a decision. Our options are limited in general and given patient's desires. 48 spent in the care of this patient including bedside evaluation and discussion/counseling and chart review. (2) Prosthetic aortic valve stenosis: Code(s): T82.857A - Stenosis of other cardiac prosthetic devices, implants and grafts, initial encounter Status: Acute Assessment and Plan: 2D echo ordered by primary service, will review when available. Moderate to severe by echo April 2020. Outpatient workup for clarification as appropriate. Recommendations to follow. (3) Atrial fibrillation with rapid ventricular response: Code(s): I48.91 - Unspecified atrial fibrillation Status: Acute Assessment and Plan: History of permanent atrial fibrillation. Relative hypotension may limit more aggressive rate control with current regimen. Caution with digoxin given renal failure, advanced age, and intermittent compliance with medications at home. If BP limits effective rate control digoxin 0.125 mg every other day a consideration provided renal function remains stable. Her rate is reasonable but elevated at times at present. May be able to increase Toprol XL to 75 mg daily BP permits. Patient is not on anticoagulation due to reported history of GI bleed patient reluctance in the past. She remains at significantly elevated risk for stroke. (4) Coronary artery disease: Qualifiers: Coronary Disease-Associated Artery/Lesion type: [place] artery [place] vs. transplanted heart: [place] heart Associated angina: without angina Qualified Code(s): I25.10 - Atherosclerotic heart disease of [place] coronary artery without angina pectoris Code(s): I25.10 - Atherosclerotic heart disease of [place] coronary artery without angina pectoris Status: Chronic Assessment and Plan: Continue current medical therapy with statin, aspirin, clopidogrel, beta-tay. patient states medications make her feel ill. Precise medications unclear per patient description. I would hold her vitamin, iron sulfate, change atorvastatin to the evening to observe if associated wi
--- NOTE | 2020-07-23 14:56 | PM.DS ---
DS: Admitting Diagnosis Admitting Diagnosis Admitting Diagnosis: A fib RVR DS: Discharge Diagnosis Discharge Diagnosis (1) Acute on chronic diastolic (congestive) heart failure: Code(s): I50.33 - Acute on chronic diastolic (congestive) heart failure Status: Acute Assessment and Plan: Date of Admission 07/22/20 Date of Discharge/DOS 07/23/20 Ms. Palacios is an 85yo F with several comorbidities including CHF, severe tricuspid valve insufficiency, coronary artery disease with recent coronary stenting Apr 2020 on dual antiplatelet therapy who presents to the hospital at the direction of her PCP due to elevated BNP on outpatient lab work. She is known to me from her recent hospital admission and was discharged 2 weeks ago. She reports she is feeling about the same as when I last saw her. She chronically feels tired, short of breath with lower extremity swelling up to the abdomen and a cough. She tells me these symptoms are not any better or worse than they had been. She denies chest pain. New since I have seen her last is a painful ulceration to the left side of her tongue, pain improved with Orajel this morning per patient. Patient's daughter, Justine, is at the bedside. I had a long discussion with Jacquelyn and Justine two weeks ago regarding further goals of care and the likelihood of repeated hospital admissions. Patient does not want invasive testing or aggressive therapies. We revisited that conversation this morning, as the patient tells me she just wants to be home and be comfortable. Patient and daughter express interest in meeting with hospice. Jacquelyn and Justine met with [facility] and she was discharged home with hospice 07/23/20. Her levothyroxine dose was increased due to elevated TSH. Patient sent in by PCP due to elevated BNP on outpatient labs. Treated with IV bumex while admitted. Cardiology was consulted by ER provider. Two weeks ago she was discharged on increased dose of her Bumex at 2mg PO daily per Dr Madrid's recommendations, will continue this dose at discharge. (2) Generalized weakness: Code(s): R53.1 - Weakness Status: Acute Assessment and Plan: Secondary to debility from chronic illnesses. She had been doing PT/OT with home health. (3) Atrial fibrillation with rapid ventricular response: Code(s): I48.91 - Unspecified atrial fibrillation Status: Acute Assessment and Plan: She was given a dose of digoxin in the ED, HRs documented as high as 110s. Rates remain 90s to low 100s this morning. For now will continue her home metoprolol which she seems to be tolerating well. Not on anticoagulation due to history of GI bleeding. (4) Acute hyponatremia: Code(s): E87.1 - Hypo-osmolality and hyponatremia Status: Chronic Assessment and Plan: Chronic hyponatremia likely secondary to fluid overload and heart failure. Stable since last hospital discharge. (5) Acute renal insufficiency: Code(s): N28.9 - Disorder of kidney and ureter, unspecified Status: Acute Assessment and Plan: Acute on chronic, Cr a little higher than discharge 2 weeks ago which may be near her new baseline. Likely secondary to acute heart failure and poor oral intake. (6) Anemia: Qualifiers: Anemia type: unspecified type Qualified Code(s): D64.9 - Anemia, unspecified Code(s): D64.9 - Anemia, unspecified Status: Chronic Assessment and Plan: Suspect anemia of chronic disease with component of iron deficiency. Started on oral iron supplementation last hospitalization which she notes is making her nauseous. No signs of acute blood loss. (7)
== END 2020-07-23 19:19 | disposition hospice, home (50) ==
LOC: ANHED 18:19 → ANHIMU 22:00
PROVIDERS: Emergency Medicine; Admitting Provider Family Medicine; Emergency Provider Emergency Medicine; PCP Family Medicine; Visit Provider Family Medicine
DX: I13.0 Hypertensive heart and chronic kidney disease with heart failure and stage 1 through stage 4 chronic kidney disease, or unspecified chronic kidney disease (principal); I50.33 Acute on chronic diastolic (congestive) heart failure; R53.1 Weakness; E87.1 Hypo-osmolality and hyponatremia; N28.9 Disorder of kidney and ureter, unspecified; D64.9 Anemia, unspecified; T82.857A Stenosis of other cardiac prosthetic devices, implants and grafts, initial encounter; R06.02 Shortness of breath; I48.91 Unspecified atrial fibrillation; N18.30 Chronic kidney disease, stage 3 unspecified; G47.33 Obstructive sleep apnea (adult) (pediatric); E03.9 Hypothyroidism, unspecified; E78.5 Hyperlipidemia, unspecified; I25.10 Atherosclerotic heart disease of native coronary artery without angina pectoris; J44.9 Chronic obstructive pulmonary disease, unspecified; J45.30 Mild persistent asthma, uncomplicated; I34.0 Nonrheumatic mitral (valve) insufficiency; M19.90 Unspecified osteoarthritis, unspecified site; I36.1 Nonrheumatic tricuspid (valve) insufficiency; Z95.5 Presence of coronary angioplasty implant and graft; Z87.891 Personal history of nicotine dependence; Z79.02 Long term (current) use of antithrombotics/antiplatelets; Z79.82 Long term (current) use of aspirin
CPT/HCPCS: 36415; 71046; 80048; 80053; 83880; 84439; 84443; 84480; 84484; 85025; 85610; 85730; 93005; 93308; 96374; 96375; 99285; A9270; G0378; J1160